=== PATIENT | male | born 1980 | race Hispanic/Latino ===

== ENCOUNTER 2017-04-27 05:35 | Emergency (ER) | payer SELFPAY ==
[2017-04-27] MEDS ORDERED: Nitroglycerin 0.4 MG TAB (25 Tab Bottle) ONE (06:21)
[2017-04-27 06:24] LABS: #Basophils 0.1 thou/uL (0.0-0.2); #Eosinphils 0.1 thou/uL (0.0-0.7); #Lymphocytes 1.8 thou/uL (1.20-3.40); #Monocytes 0.5 thou/uL (0.11-0.59); #Neutrophils 5.8 thou/uL (1.40-6.50); %Basophils 0.9 % (0.0-1.0); %Eosinophils 1.7 % (0.0-10.0); %Lymphocytes 21.6 % (21.0-51.0); %Monocytes 5.9 % (0.0-10.0); Hematocrit 32.4 % (42.0-52.0); Mean Platelet Volume 6.6 fL (7.4-10.4); Red Blood Cell (RBC) Count 3.81 mill/uL (4.70-6.10); White Blood Cell (WBC) Count 8.3 thou/uL (4.8-10.8)
[2017-04-27 06:40] LABS: ALT (SGPT) 15 U/L (8-55); AST (SGOT) 17 U/L (5-34); Alkaline Phosphatase 95 U/L (40-150); Anion Gap 13 mmol/L (10-20); BUN (Urea Nitrogen) 32 mg/dL (8.9-20.6); Bilirubin, Total 0.3 mg/dL (0.2-1.2); CK (CPK) 121 U/L (30-200); Calc. Creatinine Clearance 0 mL/min (70-130); Calcium 8.6 mg/dL (7.8-10.44); Carbon Dioxide 19 mmol/L (22-29); Chloride 111 mmol/L (98-107); Estimated GFR-MDRD 31; Globulin 4.4 g/dL (2.4-3.5); Lipase 15 U/L (8-78); Protein, Total 7.4 g/dL (6.0-8.3)
[2017-04-27 06:41] LABS: Troponin I Less than 0.010 ng/mL (< 0.028)
--- NOTE | 2017-04-27 07:49 | RAD ---
CHEST 1 VIEW: HISTORY: Chest pain. COMPARISON: 03/09/15. FINDINGS: Cardiac silhouette is magnified by projection. Pulmonary vasculature is unremarkable. Mediastinum is midline. There is no confluent airspace consolidation or evidence of pneumothorax. IMPRESSION: No active cardiopulmonary abnormalities are demonstrated. POS: [facility]
== END 2017-04-27 06:53 | disposition home or self-care (01) ==
LOC: SCSER 05:35
DX: R07.89 Other chest pain (principal); I12.9 Hypertensive chronic kidney disease with stage 1 through stage 4 chronic kidney disease, or unspecified chronic kidney disease; N18.3 Chronic kidney disease, stage 3 (moderate); F17.210 Nicotine dependence, cigarettes, uncomplicated
CPT/HCPCS: 71010; 80053; 82550; 82553; 83690; 84484; 85025; 93005

== ENCOUNTER 2017-05-09 16:15 | Observation (INO) | payer SELFPAY ==
[2017-05-09] MEDS ORDERED: Ondansetron HCl/PF 4 MG/2 ML Vial ONE (16:52)
[2017-05-09] MEDS ORDERED: Morphine 2 MG/ML SYRINGE ONE (16:52)
[2017-05-09] MEDS ORDERED: Famotidine/PF 20 mg/2ml Vial ONE (16:52)
[2017-05-09 16:58] LABS: #Eosinphils 0.2 thou/uL (0.0-0.7); #Lymphocytes 1.9 thou/uL (1.20-3.40); #Monocytes 0.5 thou/uL (0.11-0.59); #Neutrophils 4.8 thou/uL (1.40-6.50); %Basophils 0.6 % (0.0-1.0); %Eosinophils 2.2 % (0.0-10.0); %Lymphocytes 25.9 % (21.0-51.0); %Monocytes 6.8 % (0.0-10.0); Hematocrit 31.9 % (42.0-52.0); Mean Platelet Volume 6.6 fL (7.4-10.4); Red Blood Cell (RBC) Count 3.59 mill/uL (4.70-6.10); White Blood Cell (WBC) Count 7.5 thou/uL (4.8-10.8)
[2017-05-09 17:22] LABS: ALT (SGPT) 9 U/L (8-55); AST (SGOT) 16 U/L (5-34); Alkaline Phosphatase 94 U/L (40-150); Anion Gap 11 mmol/L (10-20); BUN (Urea Nitrogen) 37 mg/dL (8.9-20.6); Bilirubin, Total 0.3 mg/dL (0.2-1.2); Calc. Creatinine Clearance 0 mL/min (70-130); Calcium 8.3 mg/dL (7.8-10.44); Carbon Dioxide 15 mmol/L (22-29); Chloride 115 mmol/L (98-107); Estimated GFR-MDRD 32; Globulin 4.8 g/dL (2.4-3.5); Lipase 13 U/L (8-78); Protein, Total 7.5 g/dL (6.0-8.3)
--- NOTE | 2017-05-09 17:44 | ULT ---
GALLBLADDER ULTRASOUND: Date: 05/09/17 CLINICAL HISTORY: Pain. FINDINGS: There is increased echogenicity of the hepatic parenchyma. Gallbladder wall is within normal limits. There is no evidence of pericholecystic edema. Common duct is normal in caliber measuring 5.0 mm in diameter. No ascites. Persistent shadowing from bowel content does limit the assessment. IMPRESSION: 1. No acute gallbladder pathology. 2. Heterogeneity of hepatic echotexture. This is limited by the degree of persistent bowel shadowin g, although component of underlying steatosis cannot be entirely excluded. POS: [facility]
[2017-05-09 18:18] LABS: Bilirubin Negative (Negative); Blood, Urine Moderate (Negative); Glucose, Urine (Dipstick) 250 mg/dL (Negative); Ketone, Urine Negative (Negative); Nitrite Negative (Negative); Protein, Urine (Dipstick) > or equal to 300 mg/dL (Neg-Trace); Urobilinogen 0.2 mg/dL (0.2-1.0)
[2017-05-09 18:20] LABS: Bacteria/HPF None Seen HPF (None Seen); Hyaline Casts/LPF 0-3 HYALINE CAST LPF (0-3 Hyaline); Squamous Epithelial 0-3 HPF (0-3); WBC/HPF 0-3 HPF (0-3)
[2017-05-09] MEDS ORDERED: Dextrose 50% Abboject 50 ML SYRINGE ONE (18:52)
[2017-05-09] MEDS ORDERED: Insulin Regular 300 UNITS/3 ML VIAL ONE (18:52)
[2017-05-09] MEDS ORDERED: Albuterol Sulfate 2.5 mg/3 ml Neb ONE (18:57)
[2017-05-09] MEDS ORDERED: Ondansetron HCl/PF 4 MG/2 ML Vial IVP PRN (20:18)
[2017-05-09] MEDS ORDERED: Dextrose 5% in Water 1,000 ML IV PRN (20:20)
[2017-05-09] MEDS ORDERED: HumaLOG 300 UNITS/3 ML VIAL SC PRN ×2 (20:20)
[2017-05-09] MEDS ORDERED: Dextrose 50% Abboject 50 ML SYRINGE SLOW IVP PRN (20:20)
[2017-05-09] MEDS ORDERED: Sodium Bicarbonate 75 MEQ in Sodium Chloride 0.45% 1,000 ML IV SCH (20:45)
[2017-05-09] MEDS ORDERED: traMADol HCl 50 MG TAB PO PRN (23:01)
[2017-05-09] MEDS ORDERED: Morphine 2 MG/ML SYRINGE SLOW IVP PRN (23:01)
[2017-05-09] MEDS: Heparin 5,000 UNITS/ML VIAL SC SCH (23:04)
--- NOTE | 2017-05-10 01:36 | HP ---
DATE OF ADMISSION: 05/09/2017 CHIEF COMPLAINT: Right upper quadrant pain. HISTORY OF PRESENT ILLNESS: Patient is a 36-year-old male with the past medical history of diabetes mellitus type 2, peripheral vascular disease, hypertension, who came to the ER because of the abdom inal pain. He started having abdominal pain a few days back, pain is in the right upper quadrant, c onstant pain associated with nausea and vomiting. Denies any melena, denies any black stool. Denie s any chest pain, denies any trouble breathing, denies any palpation. Pain is cramping like of pain , improves with pain medication and relates with rest, denies any fever, denies any chills, denies d izziness. PAST MEDICAL HISTORY: As per HPI. PAST SURGICAL HISTORY: BKA. SOCIAL HISTORY: Denies smoking, denies alcohol, denies any drugs. MEDICATIONS: Reviewed. FAMILY HISTORY: Denies any heart problems. REVIEW OF SYSTEMS: Constitutional: Denies any fever, denies any chills. Eyes: Denies any vision problems. Ears: Denies any hearing loss. Neck: Denies any neck pain. Cardiovascular system: Tae es any chest pain, palpitation. Respiratory system: Denies any cough, denies any sputum production . Gastrointestinal: Positive for abdominal pain. Positive for nausea, vomiting. Musculoskeletal: Denies any joint deformities. Integumentary: Denies any rash. Psychiatric: Denies depression, anxiety. All other review of systems are reviewed and are negative. PHYSICAL EXAMINATION: CONSTITUTIONAL/VITAL SIGNS: At the time of H and P performed, blood pressure is 136/75, pulse ox 99 %, heart rate of 114. GENERAL: The patient appears comfortable. HEENT: Pupils equal, round, and reactive. Anterior naris patent. Nose normal. Teeth intact. Ton rochelle is moist. NECK: Supple, no JVD. CARDIOVASCULAR SYSTEM: S1, S2 present. Regular rate and rhythm. No murmurs, no rubs, no gallops. RESPIRATORY SYSTEM: No wheezing, no rhonchi. INTEGUMENTARY: No rashes seen. PSYCHIATRIC: Mood appropriate at this time. MUSCULOSKELETAL: No edema. LABORATORY DATA: At the time of H and P performed, sodium of 135, potassium 5.7, chloride of 115, C O2 15, BUN 37, creatinine 2.36. White count is 7.5, hemoglobin 10.9, platelet count is 308. UA spe cific greater than 300 protein, moderate blood, 7-10 rbc's. ASSESSMENT AND PLAN: The patient is a 36-year-old male: 1. Abdominal pain, right upper quadrant need to rule out any gallbladder dysfunction. We will go a head and check HIDA scan to rule out any gallbladder etiology. We will check ejection fraction also , and we will consult GI to evaluate the patient. 2. Non-anion gap metabolic acidosis plus chronic kidney disease stage 3 to 4. Creatinine appears c lose to baseline and metabolic acidosis might be secondary to underlying kidney disease itself. We will go ahead and check lactic acid and ketones also. We will start patient half NS with 75 mEq bic arbonate, and we will monitor bicarbonate closely. No need for hemodialysis at this time. 3. History of hypertension. Continue home blood pressure meds. 4. Diabetes type 2. Monitor blood sugars. We will do insulin sliding scale. 5. Proteinuria plus hematuria might be secondary to diabetic nephropathy and hypertension, need out patient workup. The case was discussed in detail with the patient. Patient is FULL CODE.
[2017-05-10 04:52] VITALS: BMI 38.2
[2017-05-10 05:25] LABS: #Eosinphils 0.1 thou/uL (0.0-0.7); #Lymphocytes 2.2 thou/uL (1.20-3.40); #Monocytes 0.6 thou/uL (0.11-0.59); #Neutrophils 4.9 thou/uL (1.40-6.50); %Basophils 0.2 % (0.0-1.0); %Eosinophils 1.3 % (0.0-10.0); %Lymphocytes 28.2 % (21.0-51.0); Mean Platelet Volume 6.4 fL (7.4-10.4); Red Blood Cell (RBC) Count 3.13 mill/uL (4.70-6.10); White Blood Cell (WBC) Count 7.8 thou/uL (4.8-10.8)
[2017-05-10 05:43] LABS: ALT (SGPT) 8 U/L (8-55); AST (SGOT) 11 U/L (5-34); Alkaline Phosphatase 78 U/L (40-150); Anion Gap 7 mmol/L (10-20); BUN (Urea Nitrogen) 35 mg/dL (8.9-20.6); Bilirubin, Total 0.2 mg/dL (0.2-1.2); Calc. Creatinine Clearance 92 mL/min (70-130); Calcium 7.7 mg/dL (7.8-10.44); Carbon Dioxide 15 mmol/L (22-29); Chloride 121 mmol/L (98-107); Estimated GFR-MDRD 34; Globulin 3.6 g/dL (2.4-3.5); Protein, Total 5.9 g/dL (6.0-8.3)
[2017-05-10] MEDS ORDERED: Ferrous Sulfate 325 MG TAB PO SCH (08:00)
[2017-05-10] MEDS ORDERED: Cholestyramine/Aspartame 4 gm Packet PO SCH (08:00)
[2017-05-10] MEDS ORDERED: Famotidine 20 MG TAB PO SCH (09:00)
[2017-05-10] MEDS: Amlodipine 5 MG TAB PO SCH ×2 (09:06→14:15)
[2017-05-10 14:18] VITALS: BP 160/96
[2017-05-10] MEDS: Heparin 5,000 UNITS/ML VIAL SC SCH (14:20)
--- NOTE | 2017-05-10 16:59 | NM ---
HIDA SCAN 05/10/17 RADIOPHARMACEUTICAL: 4.0 millicuries technetium 99m Mebrofenin IV. FINDINGS: Gallbladder is visualized just prior to 20 minutes of imaging with gradual increased radiotracer act ivity. Subsequent to protein supplementation, gallbladder ejection fracture was evaluated and there is no s ignificant contraction of the gallbladder. The calculated gallbladder ejection fraction is less than 20%. IMPRESSION: 1. Visualization of the gallbladder excludes cystic duct obstruction. 2. Nonvisualization of bowel during the exam and absence of appropriate gallbladder contraction . This raises suspicion for the possibility of a common duct obstruction. Recommend ERCP for further evaluation. POS: [facility]
[2017-05-10 20:14] VITALS: TEMP 97.9
--- NOTE | 2017-05-11 00:31 | DIS ---
DATE OF ADMISSION: 05/09/2017 DATE OF DISCHARGE: 05/10/2017 DISCHARGE DIAGNOSES: 1. Right upper quadrant abdominal pain. 2. Chronic kidney disease, stage 3. 3. Hyperkalemia, mild. 4. Metabolic acidosis. 5. Diabetes mellitus, type 2. 6. Chronic normocytic anemia. 7. Hypertension. CONSULTATIONS: None. PERTINENT LABORATORY DATA AND X-RAY FINDINGS: Potassium ranged between 5.4 and 5.7, CO2 of 15, crea tinine ranged between 2.19 and 2.36 with estimated GFR ranging between 32 and 34. Lipase 13. CBC s howed a hemoglobin ranging between 8.8 and 10.5. Abdominal ultrasound dated on 05/09/2017, showed n o acute gallbladder pathology. Common bile duct is 5 mm. Hepatic biliary scan dated on 05/10/2017, showed absence of appropriate gallbladder contraction. Gallbladder ejection fraction calculated at 20%. HOSPITAL COURSE: Patient was initially admitted to the medical floor after presenting with right up per quadrant abdominal pain, undergoing right upper quadrant abdominal ultrasound showing no evidenc e of acute pathology. Patient was placed on IV fluids and given general pain medication. The patie nt was also noted with concomitant stage 3 chronic kidney disease, treated with normal saline with s odium bicarbonate, due to mild metabolic acidosis. The patient apparently underwent HIDA scan, asse ssing gallbladder ejection fraction, showing a diminished value with inconclusive study. Patient ap parently stated he was not able to remain as an inpatient and needed to leave the hospital to attend an appointment previously scheduled. Patient decided to leave against medical advice on 05/10/2017 .
[2017-05-11] MEDS ORDERED: FLU VACC QS2017-18 36 mo. & older 0.5 ML SYRINGE IM ONE (09:00)
== END 2017-05-10 14:25 | disposition left against medical advice (07) ==
LOC: ERS 16:15 → SURG A 20:41
PROVIDERS: ADMIT Internal Medicine; ATTEND Internal Medicine
DX: R10.11 Right upper quadrant pain (principal); E11.22 Type 2 diabetes mellitus with diabetic chronic kidney disease; I12.9 Hypertensive chronic kidney disease with stage 1 through stage 4 chronic kidney disease, or unspecified chronic kidney disease; N18.3 Chronic kidney disease, stage 3 (moderate); E11.51 Type 2 diabetes mellitus with diabetic peripheral angiopathy without gangrene; E87.5 Hyperkalemia; E87.2 Acidosis; D64.9 Anemia, unspecified; Z79.899 Other long term (current) drug therapy; Z89.519 Acquired absence of unspecified leg below knee; Z87.891 Personal history of nicotine dependence
CPT/HCPCS: 36415; 36416; 76705; 78227; 80053; 81003; 81015; 83690; 85025; 96361; 96365; 96366; 96374; 96375; 96376; A9537; G0378; J1644; J1815; J2270; J2405; J7611; S0028

== ENCOUNTER 2017-05-21 02:18 | Inpatient (IN) | payer SELFPAY ==
[2017-05-21 02:51] LABS: #Basophils 0.1 thou/uL (0.0-0.2); #Eosinphils 0.1 thou/uL (0.0-0.7); #Lymphocytes 1.9 thou/uL (1.20-3.40); #Monocytes 0.6 thou/uL (0.11-0.59); #Neutrophils 8.2 thou/uL (1.40-6.50); %Basophils 0.6 % (0.0-1.0); %Lymphocytes 17.3 % (21.0-51.0); %Monocytes 5.9 % (0.0-10.0); Mean Platelet Volume 5.8 fL (7.4-10.4); Red Blood Cell (RBC) Count 3.44 mill/uL (4.70-6.10); White Blood Cell (WBC) Count 10.9 thou/uL (4.8-10.8)
[2017-05-21 03:12] LABS: ALT (SGPT) 12 U/L (8-55); AST (SGOT) 12 U/L (5-34); Alkaline Phosphatase 85 U/L (40-150); Anion Gap 13 mmol/L (10-20); BUN (Urea Nitrogen) 44 mg/dL (8.9-20.6); Bilirubin, Total 0.2 mg/dL (0.2-1.2); Calc. Creatinine Clearance 0 mL/min (70-130); Calcium 7.7 mg/dL (7.8-10.44); Carbon Dioxide 15 mmol/L (22-29); Chloride 116 mmol/L (98-107); Estimated GFR-MDRD 28; Globulin 3.7 g/dL (2.4-3.5); Lipase 25 U/L (8-78); Protein, Total 6.4 g/dL (6.0-8.3)
[2017-05-21] MEDS ORDERED: Bacitracin Zinc Ointment 30 gm TUBE ONE (03:23)
[2017-05-21] MEDS ORDERED: Famotidine/PF 20 mg/2ml Vial ONE (03:26)
[2017-05-21] MEDS ORDERED: Ondansetron HCl/PF 4 MG/2 ML Vial ONE (03:26)
[2017-05-21 03:50] LABS: Lactic Acid - Sepsis 1.2 mmol/L (0.5-2.2)
[2017-05-21 04:02] LABS: Troponin I Less than 0.010 ng/mL (< 0.028)
[2017-05-21] MEDS ORDERED: Ondansetron ODT 4 MG TAB SL PRN ×2 (05:31→07:24)
[2017-05-21] MEDS ORDERED: Ondansetron HCl/PF 4 MG/2 ML Vial IVP PRN (05:31)
[2017-05-21 05:41] VITALS: BMI 38.2
[2017-05-21] MEDS ORDERED: Dextrose 5 %-0.45 % NaCl 1,000 ML IV SCH (05:45)
[2017-05-21] MEDS ORDERED: Morphine 10 MG/ML VIAL SLOW IVP SCH (06:15)
[2017-05-21] MEDS ORDERED: Dextrose 50% Abboject 50 ML SYRINGE SLOW IVP PRN (07:24)
[2017-05-21] MEDS ORDERED: hydrALAZINE 20 MG/ML VIAL SLOW IVP PRN (07:24)
[2017-05-21] MEDS ORDERED: Acetaminophen 650 MG Suppository PR PRN (07:24)
[2017-05-21] MEDS ORDERED: HumaLOG 300 UNITS/3 ML VIAL SC PRN (07:24)
[2017-05-21] MEDS ORDERED: Dextrose 5% in Water 1,000 ML IV PRN (07:24)
[2017-05-21] MEDS: Dextrose 5 % And 0.9 % NaCl 1,000 ML IV SCH ×2 (07:48→20:00)
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
[2017-05-21] MEDS: Heparin 5,000 UNITS/ML VIAL SC SCH ×2 (08:57→20:00)
[2017-05-21] MEDS: Famotidine/PF 20 mg/2ml Vial SLOW IVP SCH ×2 (08:57→20:00)
[2017-05-21] MEDS ORDERED: FLU VACC QS2017-18 36 mo. & older 0.5 ML SYRINGE IM ONE (09:00)
[2017-05-21] MEDS: Silver Sulfadiazine 1% Cream 50 GM TUBE TP SCH ×2 (10:01→20:11)
[2017-05-21] MEDS: Ondansetron HCl/PF 4 MG/2 ML Vial IVP PRN (10:29)
[2017-05-21] MEDS: HYDROcodone/Acetaminophen 5/325 mg Tablet PO PRN (19:59)
[2017-05-21 23:19] LABS: Iron 18 ug/dL (65-175)
--- NOTE | 2017-05-22 00:02 | CON ---
DATE OF CONSULTATION: 05/21/2017 CHIEF COMPLAINT: Right upper quadrant abdominal pain. HISTORY OF PRESENT ILLNESS: Mr. Beltrán is a 36-year-old man who reports right upper quadrant aching to sharp pain which has been constant for the last 3-4 weeks. He went to the emergency room to [facility] e this evaluated and ultrasound was performed on 05/09/2017. The ultrasound showed evidence of fatt y liver, but was otherwise unremarkable. The gallbladder appeared normal and the bile duct measured 5 mm. He subsequently underwent a HIDA scan which showed the gallbladder to have filled excluding cystic duct obstruction. The calculated gallbladder ejection fraction was 20% after a protein suppl ement. The radiotracer was not confirmed to have been seen in the bowel. The pain radiates around to the right back. He has had nausea with vomiting about daily for the last week. His pain gets wo rse when he is full after eating. He does have chronic diarrhea and has about 3 liquidy stools per day with urgency immediately after meals. PAST MEDICAL HISTORY: Diabetes mellitus since age 24. Hemoglobin A1c last in 2015 was 5.8 see more recent hemoglobin A1c. He has chronic renal insufficiency. He has chronic anemia. Iron studies i n the past were more consistent with anemia of chronic disease with low iron and low TIBC. His iron studies have not been checked recently. Hypertension and peripheral vascular disease. PAST SURGICAL HISTORY: [id number] amputation. He had colonoscopy by Dr. Beck in 2013 after the preparation quality was suboptimal, this was for evaluation of chronic diarrhea which has been pret ty stable since then. FAMILY HISTORY: Negative for GI malignancies. SOCIAL HISTORY: No alcohol, tobacco or drugs. ALLERGIES: No known drug allergies. MEDICATIONS AT HOME: Famotidine, heparin, Silvadene cream, insulin. At home, he has been on lisino pril and hydralazine. REVIEW OF SYSTEMS: Negative x10 systems reviewed except as stated in the history of present illness . PHYSICAL EXAMINATION: VITAL SIGNS: Temperature 98.0, pulse 89, blood pressure 155/99. Weight is 305 pounds. GENERAL: He is in no acute distress, alert and oriented x3. He is obese. HEENT: Eyes have no scleral icterus. Oropharynx is clear, without lesions. NECK: There is no cervical or supraclavicular lymphadenopathy. LUNGS: Clear to auscultation bilaterally. HEART: Regular rate and rhythm. ABDOMEN: Soft, nondistended. Bowel sounds are present. He is tender to palpation in the right upp er quadrant. EXTREMITIES: No lower extremity edema. LABORATORY DATA: White blood cell count 10.9, hemoglobin 9.3, platelets 283, bilirubin 0.2, AST 12, ALT 12, alkaline phosphatase 85, albumin 2.7, creatinine 2.62. IMPRESSION: 1. Right upper quadrant constant pain which worsens after meals when he is feeling full. Ultrasoun d was normal other than fatty liver. HIDA scan did show a mildly decreased ejection fraction. He i s tender to palpation in the right upper quadrant. First step will be to rule out peptic ulcer dise ase or gastritis as a source. If that is negative, then gastroparesis needs to be considered and a gastric emptying scan can be performed. This likely should be done as an outpatient when he is clos er to his baseline. If the endoscopy and gastric emptying scan are normal and the patient continues to have the pain and tenderness in the right upper quadrant, then cholecystectomy can be considered . 2. Chronic normocytic anemia. This is likely due to anemia of chronic disease; however, we will re check iron studies. PLAN: 1. EGD tomorrow. 2. If the EGD is negative, then start a low residue diet with small more frequent meals and follow up as an outpatient to consider gastric emptying study. 3. Check hemoglobin A1c and iron and TIBC.
[2017-05-22 05:20] LABS: #Eosinphils 0.1 thou/uL (0.0-0.7); #Monocytes 0.6 thou/uL (0.11-0.59); %Basophils 0.2 % (0.0-1.0); %Eosinophils 1.6 % (0.0-10.0); %Lymphocytes 26.1 % (21.0-51.0); %Monocytes 7.4 % (0.0-10.0); Hematocrit 26.5 % (42.0-52.0); Mean Platelet Volume 6.7 fL (7.4-10.4); Red Blood Cell (RBC) Count 2.94 mill/uL (4.70-6.10); White Blood Cell (WBC) Count 7.7 thou/uL (4.8-10.8)
[2017-05-22 05:41] LABS: Anion Gap 9 mmol/L (10-20); BUN (Urea Nitrogen) 34 mg/dL (8.9-20.6); Calc. Creatinine Clearance 93 mL/min (70-130); Calcium 7.7 mg/dL (7.8-10.44); Carbon Dioxide 15 mmol/L (22-29); Chloride 116 mmol/L (98-107); Estimated GFR-MDRD 35
[2017-05-22] MEDS: Famotidine/PF 20 mg/2ml Vial SLOW IVP SCH (07:41)
[2017-05-22] MEDS: Ondansetron HCl/PF 4 MG/2 ML Vial IVP PRN (08:51)
[2017-05-22] MEDS: HYDROcodone/Acetaminophen 5/325 mg Tablet PO PRN (09:07)
[2017-05-22] MEDS: Silver Sulfadiazine 1% Cream 50 GM TUBE TP SCH ×2 (09:09→20:56)
[2017-05-22] MEDS: Heparin 5,000 UNITS/ML VIAL SC SCH ×2 (09:21→20:56)
[2017-05-22] MEDS: Dextrose 5 % And 0.9 % NaCl 1,000 ML IV SCH (11:20)
--- NOTE | 2017-05-22 13:25 | PDOC.PN ---
- Subjective Encounter Start Date: 05/22/17 Encounter Start Time: 10:50 Patient seen and examined. No new complaints. No overnight events - Objective Resuscitation Status: Resuscitation Status FULL:Full Resuscitation MAR Reviewed: Yes Vital Signs & Weight: Vital Signs (12 hours) Temp Pulse Resp BP BP Pulse Ox 05/22/17 12:26 98.2 F 82 16 129/84 98 05/22/17 11:28 98.2 F 82 16 129/84 98 05/22/17 08:00 98.1 F 85 18 05/22/17 07:32 98.1 F 85 18 128/85 98 05/22/17 04:00 98.4 F 81 18 144/87 H 99 Weight Admit Weight 305 lb 7 oz Weight 307 lb 1 oz I&O: 05/21/17 05/22/17 05/23/17 06:59 06:59 06:59 Intake Total 132 2150.5 1004 Output Total 350 1000 Balance -218 1150.5 1004 Result Diagrams: 05/22/17 05:08 05/22/17 05:08 Additional Labs: Accuchecks 05/22/17 05/22/17 05/21/17 11:10 03:35 20:08 POC Glucose 99 126 H 137 H 05/21/17 15:53 POC Glucose 95 Phys Exam - Physical Examination Constitutional: NAD HEENT: moist MMs, sclera anicteric Neck: no JVD, supple Respiratory: no wheezing, no rales, no rhonchi Cardiovascular: RRR, no significant murmur, no rub Gastrointestinal: soft, no distention, positive bowel sounds Musculoskeletal: no edema, pulses present right BKA Neurological: non-focal, normal sensation Psychiatric: normal affect, A&O x 3 Skin: no rash, normal turgor Dx/Plan (1) RUQ abdominal pain Code(s): R10.11 - RIGHT UPPER QUADRANT PAIN Status: Acute (2) Hypertension Code(s): I10 - ESSENTIAL (PRIMARY) HYPERTENSION Status: Chronic (3) Normocytic anemia Code(s): D64.9 - ANEMIA, UNSPECIFIED Status: Chronic (4) Obesity (BMI 30-39.9) Code(s): E66.9 - OBESITY, UNSPECIFIED Status: Chronic - Plan cont current plan of care * EGD today * after procedure will discharge * medication reviewed as below * symptomatic treatment. Review of Systems - Review of Systems ENT: negative: Ear Pain, Ear Discharge, Nose Pain, Nose Discharge, Nose Congestion, Mouth Pain, Mouth Swelling, Throat Pain, Throat Swelling, Other Respiratory: negative: Cough, Dry, Shortness of Breath, Hemoptysis, SOB with Excertion, Pleuritic Pain, Sputum, Wheezing Cardiovascular: negative: Chest Pain, Palpitations, Orthopnea, Paroxysmal Noc. Dyspnea, Edema, Light Headedness, Other Gastrointestinal: Abdominal Pain. negative: Nausea, Vomiting, Diarrhea, Constipation, Melena, Hematochezia, Other Genitourinary: negative: Dysuria, Frequency, Incontinence, Hematuria, Retention , Other Musculoskeletal: negative: Neck Pain, Shoulder Pain, Arm Pain, Back Pain, Hand Pain, Leg Pain, Foot Pain, Other Skin: negative: Rash, Lesions, Ranjit, Bruising, Other - Medications/Allergies Allergies/Adverse Reactions: Allergies Allergy/AdvReac Type Severity Reaction Status Date / Time No Known Drug Allergies Allergy Verified 05/21/17 05:40 Medications: Current Medications Acetaminophen (Tylenol) 650 mg [place] Q4H PRN PRN Reason: Headache/Fever or Pain Hydrocodone Bitart/Acetaminophen ([place] 5/325) 1 tab PO Q4H PRN PRN Reason: Moderate Pain (4-6) Last Admin: 05/22/17 09:07 Dose: 1 tab Dextrose/Water (Dextrose 50%) 25 gm SLOW IVP PRN PRN PRN Reason: Hypoglycemia Famotidine (Pepcid) 20 mg SLOW IVP Q12HR [facility] Last Admin: 05/22/17 07:41 Dose: 20 mg Glucagon (Glucagon) 1 mg IM PRN PRN PRN Reason: Hypoglycemia Heparin Sodium (Porcine) (Heparin) 5,000 units SC BID [facility] Last Admin: 05/22/17 09:21 Dose: Not Given Hydralazine HCl (Apresoline) 10 mg SLOW IVP Q4H PRN PRN Reason: Systolic BP > 180 Dextrose/Sodium Chloride (D5 0.9% Ns) 1,000 mls @ 75 mls/hr IV .[id number] [facility] Last Admin: 05/22/17 11:20 Dose: 1,000 mls Dextrose/Water (D5w) 1,000 mls @ 0 mls/hr IV .Q0M PRN; As Directed PRN Reason: Hypoglycemia Insulin Human Lispro (Humalog) 0 units SC .MILD SLIDING SCALE PRN PRN Reason: Mild Correctional Scale Ondansetron HCl (Zofran Odt) 4 mg SL Q6H PRN PRN Reason: Nausea/Vomiting Ondansetron HCl (Zofran) 4 mg IVP Q6H PRN PRN Reason: Nausea/Vomiting Last Admin: 05/22/17 08:51 Dose: 4 mg Silver Sulfadiazine (Silvadene Cream) 1 gm TP BID [facility] Last Admin: 05/22/17 09:09 Dose: 1 applic
--- NOTE | 2017-05-22 13:29 | DIS ---
DATE OF ADMISSION: 05/21/2017 DATE OF DISCHARGE: 05/22/2017 PRIMARY CARE PHYSICIAN: [facility]. DISCHARGE DISPOSITION: Home. PRIMARY DISCHARGE DIAGNOSIS: Right upper quadrant abdominal pain. SECONDARY DISCHARGE DIAGNOSES: Hypertension, normocytic anemia, right below knee amputation status, obesity with body mass index 38, and chronic kidney disease stage 3. PRIMARY PROCEDURE/OPERATION: Upper endoscopy. RADIOLOGICAL INVESTIGATION: None during this admission. SIGNIFICANT LABORATORY DATA: Hemoglobin 8.6, sodium 135, creatinine 2.17, iron 18, ferritin 65. DISCHARGE MEDICATIONS: Lisinopril 10 mg p.o. daily, Protonix 40 mg p.o. daily, hydralazine 10 mg p. o. daily, and Tylenol 500 mg q.4 hourly p.r.n. CONTRAINDICATIONS: None. CODE STATUS: FULL CODE. INPATIENT DRAPERY AND UPHOLSTERY MEASURER: Dr. Luciano Sol was consulted while in hospital. TEST RESULTS PENDING ON DISCHARGE: Upper endoscopy. DISCHARGE PLAN: [facility] hospital[facility] The patie nt is also advised to follow with Dr. Wolf. HOSPITAL COURSE: A 36-year-old male who was recently admitted in our hospital. At that time, he ca pr for right upper quadrant abdominal pain. During that admission, patient had abdominal ultrasound and HIDA scan that showed reduced gallbladder ejection fraction and ultrasound showed fatty liver. The patient left AMA during that admission and he came back again with similar right upper quadrant abdominal pain. During this admission, we are consulting Dr. Wolf and he is planning to do upper e ndoscopy today. After upper endoscopy done and based on that finding, we will consider that this patient may need a gastric emptying scan to rule out gastroparesis and if that is normal, then this patient may need fu rther treatment with a laparoscopic cholecystectomy. At this point, during this admission our goal is to do upper endoscopy only and after that we will p rescribe him Protonix therapy. He will continue all his previous medication. Patient will follow u p with Dr. Wolf for gastric emptying scan and if that is normal, then he will need a [facility] cholecyst[facility]. The patient is seen and examined at bedside today. PHYSICAL EXAMINATION: VITAL SIGNS: Currently, temperature 98.2, pulse 82, respiratory rate 16, blood pressure 129/84, and weight 307 pounds. GENERAL: The patient is currently alert, awake, no acute distress. HEAD: Normocephalic, atraumatic. LUNGS: Clear. CARDIAC: S1, S2 regular without any murmur. ABDOMEN: Soft and benign, obesity present. Right upper quadrant tenderness noted. No Miranda sign. EXTREMITIES: Right below knee amputation status. NEUROLOGIC: Nonfocal examination. Review of systems is negative with patient. The patient will be discharged later on today after upp er endoscopy done.
[2017-05-22] MEDS ORDERED: Propofol 200 MG/20 ML VIAL ONE (14:28)
--- NOTE | 2017-05-22 20:12 | OP ---
PREPROCEDURE DIAGNOSES: 1. Epigastric pain, right upper quadrant pain after meals, HIDA scan with decreased ejection fracti on. 2. Normocytic normochromic anemic with anemia of chronic disease. 3. Normal colonoscopy, 06/2014 for diarrhea. POSTPORCEDURE DIAGNOSES: 1. Fine nodular gastritis consistent with Heliobacter pylori gastritis. If patient can be discharg ed today, I will treat him with antibiotics on discharge, now I will wait for the biopsies. 2. No cause of abdominal pain identified. It is not likely related to Helicobacter pylori. 3. Clear bile noted coming from the ampulla. 4. Reflux esophagitis, mild LA grade A. RECOMMENDATIONS: 1. PPI. 2. Treat H. pylori based on biopsy results. 3. Gastric emptying scan. 4. Check hemoglobin A1c.
[2017-05-23] MEDS ORDERED: diphenhydrAMINE 50 MG/ML VIAL IVP SCH (01:00)
[2017-05-23] MEDS ORDERED: diphenhydrAMINE 50 MG/ML VIAL IVP PRN (01:09)
[2017-05-23] MEDS: Dextrose 5 % And 0.9 % NaCl 1,000 ML IV SCH (01:28)
[2017-05-23] MEDS: Heparin 5,000 UNITS/ML VIAL SC SCH ×2 (12:31→22:06)
[2017-05-23] MEDS: Silver Sulfadiazine 1% Cream 50 GM TUBE TP SCH ×2 (13:03→22:06)
--- NOTE | 2017-05-23 13:06 | PDOC.PN ---
- Subjective Encounter Start Date: 05/23/17 Encounter Start Time: 10:50 Patient seen and examined. No new complaints. No overnight events - Objective Resuscitation Status: Resuscitation Status FULL:Full Resuscitation MAR Reviewed: Yes Vital Signs & Weight: Vital Signs (12 hours) Temp Pulse Resp BP Pulse Ox 05/23/17 08:10 98.3 F 88 20 98 05/23/17 08:00 98.3 F 88 20 168/97 H 99 05/23/17 06:00 98.3 F 87 18 109/64 Weight Admit Weight 305 lb 7 oz Weight 312 lb I&O: 05/22/17 05/23/17 05/24/17 06:59 06:59 06:59 Intake Total 2150.5 3996.5 360 Output Total 1000 1100 Balance 1150.5 2896.5 360 Result Diagrams: 05/22/17 05:08 05/22/17 05:08 Additional Labs: Accuchecks 05/23/17 05/23/17 05/22/17 04:54 01:30 20:11 POC Glucose 116 H 117 H 144 H 05/22/17 05/22/17 16:35 15:39 POC Glucose 132 H 89 Radiology Reviewed by me: Yes Phys Exam - Physical Examination Constitutional: NAD HEENT: PERRLA, moist MMs, sclera anicteric Neck: no JVD, supple Respiratory: no wheezing, no rales, no rhonchi Cardiovascular: RRR, no significant murmur, no rub Gastrointestinal: soft, non-tender, no distention, positive bowel sounds Musculoskeletal: no edema, pulses present right BKA Neurological: non-focal, normal sensation Psychiatric: normal affect, A&O x 3 Skin: no rash, normal turgor Dx/Plan (1) RUQ abdominal pain Code(s): R10.11 - RIGHT UPPER QUADRANT PAIN Status: Acute (2) Hypertension Code(s): I10 - ESSENTIAL (PRIMARY) HYPERTENSION Status: Chronic (3) Normocytic anemia Code(s): D64.9 - ANEMIA, UNSPECIFIED Status: Chronic (4) Obesity (BMI 30-39.9) Code(s): E66.9 - OBESITY, UNSPECIFIED Status: Chronic - Plan cont current plan of care * EGD negative * today gastric emptying scan * if normal, will consult surgeon for lap antonette evaluation * medication reviewed as below * symptomatic treatment * change to inpt status. Review of Systems - Review of Systems ENT: negative: Ear Pain, Ear Discharge, Nose Pain, Nose Discharge, Nose Congestion, Mouth Pain, Mouth Swelling, Throat Pain, Throat Swelling, Other Respiratory: negative: Cough, Dry, Shortness of Breath, Hemoptysis, SOB with Excertion, Pleuritic Pain, Sputum, Wheezing Cardiovascular: negative: Chest Pain, Palpitations, Orthopnea, Paroxysmal Noc. Dyspnea, Edema, Light Headedness, Other Gastrointestinal: Abdominal Pain. negative: Nausea, Vomiting, Diarrhea, Constipation, Melena, Hematochezia, Other Genitourinary: negative: Dysuria, Frequency, Incontinence, Hematuria, Retention , Other Musculoskeletal: negative: Neck Pain, Shoulder Pain, Arm Pain, Back Pain, Hand Pain, Leg Pain, Foot Pain, Other - Medications/Allergies Allergies/Adverse Reactions: Allergies Allergy/AdvReac Type Severity Reaction Status Date / Time No Known Drug Allergies Allergy Verified 05/21/17 05:40 Medications: Current Medications Acetaminophen (Tylenol) 650 mg PA Q4H PRN PRN Reason: Headache/Fever or Pain Hydrocodone Bitart/Acetaminophen (Paola 5/325) 1 tab PO Q4H PRN PRN Reason: Moderate Pain (4-6) Last Admin: 05/22/17 09:07 Dose: 1 tab Dextrose/Water (Dextrose 50%) 25 gm SLOW IVP PRN PRN PRN Reason: Hypoglycemia Diphenhydramine HCl (Benadryl) 25 mg IVP Q6H PRN PRN Reason: Itching & Insomnia Glucagon (Glucagon) 1 mg IM PRN PRN PRN Reason: Hypoglycemia Heparin Sodium (Porcine) (Heparin) 5,000 units SC BID CARLOS EDUARDO Last Admin: 05/23/17 12:31 Dose: Not Given Hydralazine HCl (Apresoline) 10 mg SLOW IVP Q4H PRN PRN Reason: Systolic BP > 180 Dextrose/Water (D5w) 1,000 mls @ 0 mls/hr IV .Q0M PRN; As Directed PRN Reason: Hypoglycemia Insulin Human Lispro (Humalog) 0 units SC .MILD SLIDING SCALE PRN PRN Reason: Mild Correctional Scale Ondansetron HCl (Zofran Odt) 4 mg SL Q6H PRN PRN Reason: Nausea/Vomiting Ondansetron HCl (Zofran) 4 mg IVP Q6H PRN PRN Reason: Nausea/Vomiting Last Admin: 05/22/17 08:51 Dose: 4 mg Pantoprazole Sodium (Protonix) 40 mg PO DAILY [facility] Last Admin: 05/23/17 12:31 Dose: Not Given Silver Sulfadiazine (Silvadene Cream) 1 gm TP BID [facility] Last Admin: 05/23/17 13:03 Dose: 1 applic Sodium Chloride (Flush - Normal Saline) 10 ml IVF PRN PRN PRN Reason: Saline Flush
[2017-05-23] MEDS: HYDROcodone/Acetaminophen 5/325 mg Tablet PO PRN (14:30)
--- NOTE | 2017-05-23 15:47 | NM ---
GASTRIC EMPTYING EXAM: 05/23/17 CLINICAL HISTORY: Epigastric pain, nausea and vomiting. RADIOPHARMACEUTICAL: 2 millicuries technetium 99m sulfur colloid, oral. FINDINGS: Using geometric mean, the calculated total gastric emptying is 30% at greater than 230 minutes. IMPRESSION: Minimal gastric emptying over greater than 230 minutes. Correlate clinically for evidence of gastrop aresis. POS: [facility]
--- NOTE | 2017-05-23 17:35 | PRG ---
DATE OF SERVICE: 05/23/2017 SUBJECTIVE: Mr. Beltrán still has persistent right upper quadrant abdominal pain. OBJECTIVE: VITAL SIGNS: Temperature 98.3, pulse 88, blood pressure 168/97. GENERAL: He is in no acute distress. He is alert and oriented x3. LUNGS: Clear to auscultation bilaterally. HEART: Regular rate and rhythm. ABDOMEN: Soft, mild tenderness in the right upper side without guarding. Bowel sounds are present. EXTREMITIES: No lower extremity edema. LABORATORY DATA: White blood cell count 7.7, hemoglobin 8.6, platelets 235, ferritin 65, creatinine 2.17, iron 18, TIBC 206, and albumin 2.7. IMPRESSION: Diabetic gastroparesis. Gastric emptying scan today showed 30% emptying at 4 hours. E sophagogastroduodenoscopy was negative yesterday. He did have some nodular gastritis and mild reflu x esophagitis. Biopsies were negative for Helicobacter pylori. RECOMMENDATIONS: 1. Start gastroparesis diet with small more frequent meals and liquids and solid portion s of the meal. Low residue diet and low fat diet. I will consult the dietitian to assist with this . 2. We will give a trial of metoclopramide 5 mg prior to meals and at bedtime. If he tolerates this , then he could potentially increase the dose further in the future depending on response. 3. The patient is still concerned that he could have gallbladder source for his pain. If he fails to respond to treatment for the gastroparesis, then we can reassess the gallbladder. Please note that he will likely be ready to discharge home tomorrow.
[2017-05-23] MEDS ORDERED: hydrALAZINE 25 MG TAB PO SCH (23:00)
[2017-05-24] MEDS: HYDROcodone/Acetaminophen 5/325 mg Tablet PO PRN (00:18)
[2017-05-24] MEDS ORDERED: cloNIDine 0.1 MG TAB PO SCH (00:30)
[2017-05-24] MEDS ORDERED: cloNIDine 0.1 MG TAB PO PRN (00:41)
[2017-05-24] MEDS: Ondansetron HCl/PF 4 MG/2 ML Vial IVP PRN (04:41)
[2017-05-24 05:27] VITALS: TEMP 98.3
[2017-05-24] MEDS ORDERED: Dicyclomine 10 MG CAP PO PRN (06:21)
[2017-05-24 06:43] LABS: #Eosinphils 0.2 thou/uL (0.0-0.7); #Lymphocytes 1.7 thou/uL (1.20-3.40); #Monocytes 0.7 thou/uL (0.11-0.59); #Neutrophils 6.3 thou/uL (1.40-6.50); %Basophils 0.2 % (0.0-1.0); %Eosinophils 1.9 % (0.0-10.0); %Lymphocytes 18.9 % (21.0-51.0); %Monocytes 7.6 % (0.0-10.0); Hematocrit 29.2 % (42.0-52.0); Mean Platelet Volume 6.3 fL (7.4-10.4); Red Blood Cell (RBC) Count 3.28 mill/uL (4.70-6.10); White Blood Cell (WBC) Count 8.9 thou/uL (4.8-10.8)
[2017-05-24 06:54] LABS: Hemoglobin A1c 5.5 % (4.0-6.0)
[2017-05-24 07:08] LABS: Anion Gap 11 mmol/L (10-20); BUN (Urea Nitrogen) 31 mg/dL (8.9-20.6); Calc. Creatinine Clearance 97 mL/min (70-130); Calcium 8.2 mg/dL (7.8-10.44); Carbon Dioxide 16 mmol/L (22-29); Chloride 115 mmol/L (98-107); Estimated GFR-MDRD 36
[2017-05-24] MEDS: Silver Sulfadiazine 1% Cream 50 GM TUBE TP SCH (07:51)
[2017-05-24] MEDS: Heparin 5,000 UNITS/ML VIAL SC SCH (07:51)
[2017-05-24 07:55] VITALS: BP 158/95
[2017-05-24] MEDS ORDERED: hydrALAZINE 25 MG TAB PO SCH (09:00)
[2017-05-24] MEDS ORDERED: Metoprolol Tartrate 25 MG TAB PO SCH (09:00)
[2017-05-24] MEDS ORDERED: Amlodipine 5 MG TAB PO SCH (09:00)
--- NOTE | 2017-05-24 13:43 | PDOC.PN ---
- Subjective Encounter Start Date: 05/24/17 Encounter Start Time: 06:50 -: old records requested/rev Patient seen and examined. No new complaints. No overnight events - Objective Resuscitation Status: Resuscitation Status FULL:Full Resuscitation MAR Reviewed: Yes Vital Signs & Weight: Vital Signs (12 hours) Temp Pulse Resp BP BP Pulse Ox 05/24/17 08:00 98.3 F 87 16 97 05/24/17 07:53 98.3 F 87 16 158/95 H 99 05/24/17 07:50 88 05/24/17 04:00 98.3 F 88 18 152/88 H 99 05/24/17 02:00 97 127/80 Weight Admit Weight 305 lb 7 oz Weight 312 lb I&O: 05/23/17 05/24/17 05/25/17 06:59 06:59 06:59 Intake Total 3996.5 1520 Output Total 1100 2500 Balance 2896.5 -980 Result Diagrams: 05/24/17 06:34 05/24/17 06:34 Additional Labs: Accuchecks 05/24/17 05/24/17 05/24/17 11:02 04:34 00:20 POC Glucose 121 H 104 120 H 05/23/17 05/23/17 20:19 16:25 POC Glucose 93 97 Phys Exam - Physical Examination Constitutional: NAD HEENT: PERRLA, moist MMs, sclera anicteric Neck: no JVD, supple Respiratory: no wheezing, no rales, no rhonchi Cardiovascular: RRR, no significant murmur, no rub Gastrointestinal: soft, non-tender, no distention, positive bowel sounds Musculoskeletal: no edema, pulses present right BKA Neurological: non-focal, normal sensation, moves all 4 limbs Lymphatic: no nodes Psychiatric: normal affect, A&O x 3 Skin: no rash, normal turgor Dx/Plan (1) RUQ abdominal pain Code(s): R10.11 - RIGHT UPPER QUADRANT PAIN Status: Acute (2) Hypertension Code(s): I10 - ESSENTIAL (PRIMARY) HYPERTENSION Status: Chronic (3) Normocytic anemia Code(s): D64.9 - ANEMIA, UNSPECIFIED Status: Chronic (4) Obesity (BMI 30-39.9) Code(s): E66.9 - OBESITY, UNSPECIFIED Status: Chronic - Plan cont current plan of care * medication reviewed as below * symptomatic treatment * see discharge rosa from nove-1 and today. Review of Systems - Review of Systems ENT: negative: Ear Pain, Ear Discharge, Nose Pain, Nose Discharge, Nose Congestion, Mouth Pain, Mouth Swelling, Throat Pain, Throat Swelling, Other Respiratory: negative: Cough, Dry, Shortness of Breath, Hemoptysis, SOB with Excertion, Pleuritic Pain, Sputum, Wheezing Cardiovascular: negative: Chest Pain, Palpitations, Orthopnea, Paroxysmal Noc. Dyspnea, Edema, Light Headedness, Other Gastrointestinal: negative: Nausea, Vomiting, Abdominal Pain, Diarrhea, Constipation, Melena, Hematochezia, Other Genitourinary: negative: Dysuria, Frequency, Incontinence, Hematuria, Retention , Other Musculoskeletal: negative: Neck Pain, Shoulder Pain, Arm Pain, Back Pain, Hand Pain, Leg Pain, Foot Pain, Other - Medications/Allergies Allergies/Adverse Reactions: Allergies Allergy/AdvReac Type Severity Reaction Status Date / Time No Known Drug Allergies Allergy Verified 05/21/17 05:40
--- NOTE | 2017-05-24 14:05 | DIS ---
DATE OF ADMISSION: 05/21/2017 DATE OF DISCHARGE: 05/24/2017 PRIMARY CARE PHYSICIAN: [facility]. Please see my discharge summary dictated on 05/22/2017. This patient came to hospital with right up per quadrant pain. He had HIDA scan before which showed a low gallbladder ejection fraction. His u ltrasound is unremarkable. This admission, the patient underwent upper endoscopy and upper endoscop y essentially was normal. Subsequently, we did a gastric emptying scan and gastric emptying scan sh owed gastroparesis. His hemoglobin A1c is 5.5. His pathology report from stomach is negative for H . pylori and it came back positive for chronic inactive gastritis. At this point, gastroenterologis t recommended Stretta gastroparesis with Reglan. During this admission, we increased his hydralazin e 25 mg t.i.d. and we discontinued lisinopril because of hyperkalemia and instead we started metopro lol tartrate 25 mg p.o. b.i.d. We are prescribing Reglan 5 mg t.i.d. along with the Protonix 40 mg p.o. daily. At this point, we are doing therapeutic trial with Reglan and Protonix. If the patient improves his abdominal pain, then he may not need laparoscopic cholecystectomy, but if he does not improve, then he may need laparoscopic cholecystectomy that can be done as an outpatient procedure. At this point, the patient agreed to go home. The patient is seen and examined at bedside today. Leonard nagy see my progress note from today for further details.
--- NOTE | 2017-06-01 16:29 | EKG ---
Test Reason : Blood Pressure : / mmHG Vent. Rate : 100 BPM Atrial Rate : 100 BPM P-R Int : 124 ms QRS Dur : 092 ms QT Int : 312 ms P-R-T Axes : 035 005 000 degrees QTc Int : 402 ms Normal sinus rhythm Nonspecific ST abnormality Normal ECG Confirmed by RAKAN BRISENO, MARISSA ([id number]), editor farm journal YUMIKO MORALES ([id number]) on 06/01/2017 4:29:36 PM Referred By: RAKAN Confirmed By:MARISSA BLEDSOE MD
== END 2017-05-24 12:01 | disposition home or self-care (01) | DRG 74 ==
LOC: SCSER 02:18 → OBSVTOIN 03:40 → ONC 03:40 → T4-B 09:58
PROVIDERS: ADMIT Internal Medicine; ATTEND Internal Medicine
PROC: 0DB68ZX Excision of Stomach, Via Natural or Artificial Opening Endoscopic, Diagnostic (ICD-10-PCS; principal; 2017-05-22)
DX: E11.43 Type 2 diabetes mellitus with diabetic autonomic (poly)neuropathy (principal); E11.22 Type 2 diabetes mellitus with diabetic chronic kidney disease; E11.51 Type 2 diabetes mellitus with diabetic peripheral angiopathy without gangrene; K29.60 Other gastritis without bleeding; K31.84 Gastroparesis; E87.5 Hyperkalemia; I12.9 Hypertensive chronic kidney disease with stage 1 through stage 4 chronic kidney disease, or unspecified chronic kidney disease; T24.202A Burn of second degree of unspecified site of left lower limb, except ankle and foot, initial encounter; K52.9 Noninfective gastroenteritis and colitis, unspecified; N18.3 Chronic kidney disease, stage 3 (moderate); Z89.511 Acquired absence of right leg below knee; D63.1 Anemia in chronic kidney disease; K21.0 Gastro-esophageal reflux disease with esophagitis; E66.9 Obesity, unspecified; Z68.38 Body mass index [BMI] 38.0-38.9, adult; K76.0 Fatty (change of) liver, not elsewhere classified; E86.0 Dehydration; F17.211 Nicotine dependence, cigarettes, in remission
CPT/HCPCS: 36415; 36416; 78264; 80048; 80053; 82553; 82728; 83036; 83540; 83550; 83605; 83690; 84484; 85025; 88305; 88312; 90471; 90682; 90732; 93005; 96361; 96374; 96375; A9541; G0008; G0009; J0360; J1200; J1644; J2270; J2405; J2704; Q2036; S0028

== ENCOUNTER 2017-06-01 23:41 | Emergency (ER) | payer SELFPAY, OTHER ==
[2017-06-01] MEDS ORDERED: Ketorolac Tromethamine 30 MG/ML VIAL ONE (23:59)
[2017-06-02 00:09] LABS: #Basophils 0.1 thou/uL (0.0-0.2); #Eosinphils 0.1 thou/uL (0.0-0.7); #Lymphocytes 2.3 thou/uL (1.20-3.40); #Monocytes 0.7 thou/uL (0.11-0.59); #Neutrophils 6.3 thou/uL (1.40-6.50); %Basophils 0.9 % (0.0-1.0); %Eosinophils 1.5 % (0.0-10.0); %Lymphocytes 23.9 % (21.0-51.0); %Monocytes 6.9 % (0.0-10.0); Hematocrit 28.9 % (42.0-52.0); Mean Platelet Volume 4.6 fL (7.4-10.4); Red Blood Cell (RBC) Count 3.36 mill/uL (4.70-6.10); White Blood Cell (WBC) Count 9.4 thou/uL (4.8-10.8)
[2017-06-02 00:21] LABS: PTT 28.5 SEC (22.9-36.1)
[2017-06-02 00:22] LABS: Prothrombin Time 13.5 SEC (12.0-14.7)
[2017-06-02 00:27] LABS: ALT (SGPT) 10 U/L (8-55); AST (SGOT) 14 U/L (5-34); Alkaline Phosphatase 86 U/L (40-150); Anion Gap 12 mmol/L (10-20); BUN (Urea Nitrogen) 30 mg/dL (8.9-20.6); Bilirubin, Total 0.4 mg/dL (0.2-1.2); Calc. Creatinine Clearance 0 mL/min (70-130); Calcium 8.3 mg/dL (7.8-10.44); Carbon Dioxide 16 mmol/L (22-29); Chloride 113 mmol/L (98-107); Estimated GFR-MDRD 35; Globulin 4.2 g/dL (2.4-3.5); Protein, Total 6.9 g/dL (6.0-8.3)
[2017-06-02 00:49] LABS: Bilirubin Negative (Negative); Blood, Urine Small (Negative); Glucose, Urine (Dipstick) 100 mg/dL (Negative); Ketone, Urine Negative (Negative); Nitrite Negative (Negative); Protein, Urine (Dipstick) > or equal to 300 mg/dL (Neg-Trace); Urobilinogen 0.2 mg/dL (0.2-1.0)
[2017-06-02 00:58] LABS: Bacteria/HPF None Seen HPF (None Seen); Hyaline Casts/LPF NONE SEEN LPF (0-3 Hyaline); RBC/HPF 0-3 HPF (0-3); Squamous Epithelial None Seen HPF (0-3); WBC/HPF 0-3 HPF (0-3)
[2017-06-02] MEDS ORDERED: Bacitracin Zinc Ointment 30 gm TUBE ONE (02:00)
[2017-06-02 02:51] LABS: Lactic Acid - Sepsis 0.6 mmol/L (0.5-2.2)
[2017-06-02] MEDS ORDERED: cefTRIAXone\\ROCEPHIN 2 GM VIAL ONE (03:04)
[2017-06-02] MEDS ORDERED: Sodium Chloride 0.9% 100 ML ONE (03:15)
--- NOTE | 2017-06-02 13:56 | ULT ---
PRELIMINARY REPORT/[facility]/EMERGENCY AFTER HOURS PROCEDURE: EXAM: US Duplex Left Lower Extremity Veins EXAM DATE/TIME: Exam ordered 06/02/2017 12:42 AM CLINICAL HISTORY: 36 years old, male; Pain; Other: Pain, redness, swelling lle TECHNIQUE: Real-time ultrasound scan of the veins of the left lower extremity with color Doppler flow, spectral waveform analysis and compression. COMPARISON: No relevant prior studies available. FINDINGS: Deep veins: Normal. No DVT in the visualized common femoral, femoral, proximal deep femoral or popli teal veins. The veins demonstrate normal color flow, are normally compressible, with normal phasic f low and/or augmentation response. Superficial veins: Normal. No thrombus in the visualized great saphenous vein. Soft tissues: There is soft tissue edema of the LEFT lower extremity. No popliteal cyst. IMPRESSION: No evidence for acute DVT. Nonspecific LEFT lower extremity soft tissue edema. Correlate for cellulitis. Thank you for allowing us to participate in the care of your patient. Dictated and Authenticated by: Ramsey Ro MD 06/02/2017 3:13 AM Central Time ([place] \T\ [place]) FINAL REPORT LEFT LOWER EXTREMITY VENOUS DUPLEX ULTRASOUND INCLUDING COLOR AND SPECTRAL DOPPLER IMAGING: EMERGENT AFTER HOURS EXAM TIME: 12:54 a.m. DATE: 06/02/17. No evidence of deep venous thrombosis. Nonspecific subcutaneous edema and fat stranding. POS: [facility]
== END 2017-06-02 08:49 | disposition home or self-care (01) ==
LOC: SCSER 23:41
DX: L03.116 Cellulitis of left lower limb (principal); E86.0 Dehydration; T24.002D Burn of unspecified degree of unspecified site of left lower limb, except ankle and foot, subsequent encounter; I12.9 Hypertensive chronic kidney disease with stage 1 through stage 4 chronic kidney disease, or unspecified chronic kidney disease; E10.22 Type 1 diabetes mellitus with diabetic chronic kidney disease; N18.3 Chronic kidney disease, stage 3 (moderate); Z89.511 Acquired absence of right leg below knee; Z87.891 Personal history of nicotine dependence; Z79.899 Other long term (current) drug therapy; X08.8XXD Exposure to other specified smoke, fire and flames, subsequent encounter
CPT/HCPCS: 36416; 80053; 81003; 81015; 82550; 83605; 85025; 85379; 85610; 85730; 86140; 87040; 96361; 96365; 96367; 96375; J0696; J1885; J3370; J7050

== ENCOUNTER 2017-06-11 00:53 | Emergency (ER) | payer SELFPAY ==
[2017-06-11] MEDS ORDERED: Nitroglycerin 2% Ointment 1 INCH/1 GM Packet ONE (01:31)
[2017-06-11 01:35] LABS: #Eosinphils 0.2 thou/uL (0.0-0.7); #Monocytes 0.6 thou/uL (0.11-0.59); #Neutrophils 6.8 thou/uL (1.40-6.50); %Basophils 0.5 % (0.0-1.0); %Eosinophils 1.6 % (0.0-10.0); %Lymphocytes 20.5 % (21.0-51.0); %Monocytes 6.5 % (0.0-10.0); Hematocrit 28.1 % (42.0-52.0); Mean Platelet Volume 6.3 fL (7.4-10.4); Red Blood Cell (RBC) Count 3.13 mill/uL (4.70-6.10); White Blood Cell (WBC) Count 9.6 thou/uL (4.8-10.8)
[2017-06-11 01:41] LABS: Prothrombin Time 13.2 SEC (12.0-14.7)
[2017-06-11 01:51] LABS: ALT (SGPT) 8 U/L (8-55); AST (SGOT) 13 U/L (5-34); Alkaline Phosphatase 82 U/L (40-150); Anion Gap 11 mmol/L (10-20); BUN (Urea Nitrogen) 43 mg/dL (8.9-20.6); Bilirubin, Total 0.3 mg/dL (0.2-1.2); CK (CPK) 175 U/L (30-200); Calc. Creatinine Clearance 0 mL/min (70-130); Calcium 8.1 mg/dL (7.8-10.44); Carbon Dioxide 15 mmol/L (22-29); Chloride 117 mmol/L (98-107); Estimated GFR-MDRD 30; Globulin 4.2 g/dL (2.4-3.5); Lipase 25 U/L (8-78); Protein, Total 6.9 g/dL (6.0-8.3)
[2017-06-11 01:54] LABS: Troponin I Less than 0.010 ng/mL (< 0.028)
[2017-06-11] MEDS ORDERED: Ondansetron ODT 4 MG TAB ONE (02:13)
[2017-06-11] MEDS ORDERED: traMADol HCl 50 MG TAB ONE (03:02)
--- NOTE | 2017-06-11 08:21 | RAD ---
UPRIGHT PORTABLE CHEST ONE VIEW: History: 36-year-old male with dyspnea and shortness of breath, leg swelling. Comparison: 04-27-17 FINDINGS: Poor inspiratory effort resulting in some vascular crowding. Heart size is within normal limits. The lungs are clear. IMPRESSION: Poor inspiration. No acute intrathoracic disease. POS: [facility]
== END 2017-06-11 03:08 | disposition home or self-care (01) ==
LOC: ERS 00:53
DX: I12.9 Hypertensive chronic kidney disease with stage 1 through stage 4 chronic kidney disease, or unspecified chronic kidney disease (principal); E11.22 Type 2 diabetes mellitus with diabetic chronic kidney disease; N18.3 Chronic kidney disease, stage 3 (moderate); R60.9 Edema, unspecified; R11.10 Vomiting, unspecified
CPT/HCPCS: 36415; 71010; 80053; 82553; 83690; 83880; 84484; 85025; 85610; 85730; 93005; Q0162

== ENCOUNTER 2017-07-09 16:38 | Emergency (ER) | payer MEDICAID, OTHER, SELFPAY ==
[2017-07-09 17:30] LABS: #Basophils 0.1 thou/uL (0.0-0.2); #Eosinphils 0.2 thou/uL (0.0-0.7); #Lymphocytes 1.6 thou/uL (1.20-3.40); #Monocytes 0.6 thou/uL (0.11-0.59); #Neutrophils 3.9 thou/uL (1.40-6.50); %Basophils 1.1 % (0.0-1.0); %Eosinophils 3.5 % (0.0-10.0); %Monocytes 9.4 % (0.0-10.0); Hematocrit 25.4 % (42.0-52.0); Mean Platelet Volume 5.9 fL (7.4-10.4); Red Blood Cell (RBC) Count 2.95 mill/uL (4.70-6.10); White Blood Cell (WBC) Count 6.4 thou/uL (4.8-10.8)
[2017-07-09 17:44] LABS: ALT (SGPT) 8 U/L (8-55); AST (SGOT) 12 U/L (5-34); Alkaline Phosphatase 93 U/L (40-150); Anion Gap 11 mmol/L (10-20); BUN (Urea Nitrogen) 33 mg/dL (8.9-20.6); Bilirubin, Total 0.4 mg/dL (0.2-1.2); CK (CPK) 110 U/L (30-200); Calc. Creatinine Clearance 0 mL/min (70-130); Calcium 8.3 mg/dL (7.8-10.44); Carbon Dioxide 16 mmol/L (22-29); Chloride 115 mmol/L (98-107); Estimated GFR-MDRD 24; Globulin 4.1 g/dL (2.4-3.5); Lipase 12 U/L (8-78); Protein, Total 6.7 g/dL (6.0-8.3); Troponin I 0.011 ng/mL (< 0.028)
--- NOTE | 2017-07-09 18:20 | RAD ---
PORTABLE CHEST 07/09/17 PROVIDED CLINICAL HISTORY: Chest pain. FINDINGS: Comparison 06/11/17. Evaluation is limited by patient body habitus. The lungs are hypoinflated. The heart appears enlarged . No focal consolidation, pleural fluid, or pneumothorax evident. IMPRESSION: Limited exam without evidence for acute cardiopulmonary process. POS: [facility]
== END 2017-07-09 18:22 | disposition home or self-care (01) ==
LOC: SCSER 16:38
DX: R07.89 Other chest pain (principal); E11.9 Type 2 diabetes mellitus without complications; I12.9 Hypertensive chronic kidney disease with stage 1 through stage 4 chronic kidney disease, or unspecified chronic kidney disease; N18.3 Chronic kidney disease, stage 3 (moderate); Z87.891 Personal history of nicotine dependence; Z79.899 Other long term (current) drug therapy
CPT/HCPCS: 71010; 80053; 82550; 82553; 83690; 84484; 85025; 93005

== ENCOUNTER 2017-07-15 19:12 | Emergency (ER) | payer SELFPAY ==
[2017-07-15 20:43] LABS: #Basophils 0.1 thou/uL (0.0-0.2); #Eosinphils 0.2 thou/uL (0.0-0.7); #Monocytes 0.8 thou/uL (0.11-0.59); #Neutrophils 5.2 thou/uL (1.40-6.50); %Basophils 0.9 % (0.0-1.0); %Eosinophils 2.5 % (0.0-10.0); %Lymphocytes 24.2 % (21.0-51.0); %Monocytes 9.7 % (0.0-10.0); Mean Platelet Volume 6.3 fL (7.4-10.4); Red Blood Cell (RBC) Count 3.26 mill/uL (4.70-6.10); White Blood Cell (WBC) Count 8.2 thou/uL (4.8-10.8)
[2017-07-15 21:05] LABS: ALT (SGPT) 9 U/L (8-55); AST (SGOT) 16 U/L (5-34); Alkaline Phosphatase 97 U/L (40-150); Anion Gap 11 mmol/L (10-20); BUN (Urea Nitrogen) 41 mg/dL (8.9-20.6); Bilirubin, Total 0.3 mg/dL (0.2-1.2); Calc. Creatinine Clearance 0 mL/min (70-130); Calcium 8.4 mg/dL (7.8-10.44); Carbon Dioxide 14 mmol/L (22-29); Chloride 115 mmol/L (98-107); Estimated GFR-MDRD 20; Globulin 4.8 g/dL (2.4-3.5); Protein, Total 7.7 g/dL (6.0-8.3)
[2017-07-16] MEDS ORDERED: Ondansetron ODT 4 MG TAB ONE (01:09)
== END 2017-07-16 01:30 | disposition home or self-care (01) ==
LOC: ERS 19:12
DX: S81.802A Unspecified open wound, left lower leg, initial encounter (principal); E11.22 Type 2 diabetes mellitus with diabetic chronic kidney disease; I12.9 Hypertensive chronic kidney disease with stage 1 through stage 4 chronic kidney disease, or unspecified chronic kidney disease; N18.3 Chronic kidney disease, stage 3 (moderate); Z87.891 Personal history of nicotine dependence; X08.8XXA Exposure to other specified smoke, fire and flames, initial encounter
CPT/HCPCS: 36415; 80053; 85025; 87040; 99284; Q0162

== ENCOUNTER 2017-08-15 16:49 | Emergency (ER) | payer SELFPAY ==
[2017-08-15] MEDS ORDERED: Acetaminophen 500 MG TAB ONE (18:50)
--- NOTE | 2017-08-15 19:56 | RAD ---
PORTABLE CHEST 08/15/17 PROVIDED CLINICAL HISTORY: Cough. FINDINGS: Comparison 07/09/17. Evaluation is limited by patient body habitus. The cardiac silhouette appears enlarged. No definite f ocal consolidation, pleural fluid or pneumothorax apparent. IMPRESSION: Limited study without evidence for an acute cardiopulmonary process. POS: [facility]
== END 2017-08-15 19:31 | disposition home or self-care (01) ==
LOC: ERS 16:49
DX: B34.9 Viral infection, unspecified (principal); E11.9 Type 2 diabetes mellitus without complications; I12.9 Hypertensive chronic kidney disease with stage 1 through stage 4 chronic kidney disease, or unspecified chronic kidney disease; N18.3 Chronic kidney disease, stage 3 (moderate); Z87.891 Personal history of nicotine dependence; Z79.899 Other long term (current) drug therapy
CPT/HCPCS: 71045

== ENCOUNTER 2017-11-20 11:58 | Observation (INO) | payer SELFPAY ==
[2017-11-20] MEDS ORDERED: Nitroglycerin 2% Ointment 1 INCH/1 GM Packet ONE (12:27)
[2017-11-20 12:32] LABS: #Basophils 0.1 thou/uL (0.0-0.2); #Eosinphils 0.1 thou/uL (0.0-0.7); #Lymphocytes 1.7 thou/uL (1.20-3.40); #Monocytes 0.4 thou/uL (0.11-0.59); #Neutrophils 4.8 thou/uL (1.40-6.50); %Eosinophils 1.7 % (0.0-10.0); %Lymphocytes 23.6 % (21.0-51.0); %Monocytes 6.1 % (0.0-10.0); %Neutrophils 67.6 % (42.0-75.0); Hemoglobin 9.6 g/dL (14.0-18.0); Mean Corpuscular HGB CONC 32.3 g/dL (32.0-36.0); Mean Corpuscular Hemoglobin 27.3 pg (27.0-31.0); Mean Corpuscular Volume 84.4 fl (80.0-94.0); Mean Platelet Volume 6.6 fL (7.4-10.4); Platelet Count 260 thou/uL (130-400); RBC Distribution Width 14.1 % (11.5-14.5); Red Blood Cell (RBC) Count 3.51 mill/uL (4.70-6.10); White Blood Cell (WBC) Count 7.1 thou/uL (4.8-10.8)
[2017-11-20 12:40] LABS: ALT (SGPT) 10 U/L (8-55); AST (SGOT) 14 U/L (5-34); Albumin 2.8 g/dL (3.5-5.0); Alkaline Phosphatase 91 U/L (40-150); Anion Gap 12 mmol/L (10-20); BUN (Urea Nitrogen) 41 mg/dL (8.9-20.6); Bilirubin, Total 0.4 mg/dL (0.2-1.2); Calc. Creatinine Clearance 0 mL/min (70-130); Calcium 8.3 mg/dL (7.8-10.44); Carbon Dioxide 15 mmol/L (22-29); Chloride 117 mmol/L (98-107); Estimated GFR-MDRD 27; Globulin 4.2 g/dL (2.4-3.5); Glucose 132 mg/dL (70-105); Lipase 12 U/L (8-78); Potassium 5.1 mmol/L (3.5-5.1); Sodium 139 mmol/L (136-145)
[2017-11-20 12:41] LABS: CKMB 4.2 ng/mL (0-6.6); Troponin I Less than 0.010 ng/mL (< 0.028)
--- NOTE | 2017-11-20 13:09 | RAD ---
PORTABLE CHEST ONE VIEW: Date: 11-20-17 Time: 12:37 p.m. History: Chest pain. FINDINGS: Comparison made with exam of 07-09-17. The heart size is normal. The lungs are well expanded without focal areas of consolidation, pneumotho rax, or pleural effusions. IMPRESSION: No radiographic evidence of acute cardiopulmonary process. POS: [facility]
[2017-11-20] MEDS ORDERED: Lidocaine Viscous Sol 2% 15 ml UD Cup ONE (13:50)
[2017-11-20] MEDS ORDERED: Mag-Al Plus 1200 MG/1200 MG/120 MG/30 ML UDCUP ONE (13:51)
--- NOTE | 2017-11-20 14:58 | CT ---
NONCONTRAST HEAD CT: HISTORY: Headache x 2 days. Left-sided numbness. COMPARISON: 12/29/14. TECHNIQUE: Noncontrast head CT is performed from the skull base to the skull vertex. FINDINGS: No parenchymal hemorrhage. No extraaxial hematoma. No midline shift. Basilar cisterns are patent. Brain volume, age appropriate. Cortical cadena-white matter differentiation is preserved. The ventricles and sulci are patent and symmetric. Calvarium is intact. Adequate aeration of the sinuses and mastoid air cells. IMPRESSION: No acute intracranial process. Further evaluation with MRI if clinically warranted. POS: [facility]
[2017-11-20] MEDS ORDERED: Acetaminophen 500 MG TAB ONE (15:09)
[2017-11-20 15:45] LABS: Troponin I Less than 0.010 ng/mL (< 0.028)
[2017-11-20 16:52] VITALS: BMI 39.5
[2017-11-20] MEDS ORDERED: Dextrose 50% Abboject 50 ML SYRINGE SLOW IVP PRN (18:18)
[2017-11-20] MEDS ORDERED: Nitroglycerin 0.4 MG TAB (25 Tab Bottle) PO PRN (18:18)
[2017-11-20] MEDS ORDERED: hydrALAZINE 20 MG/ML VIAL SLOW IVP PRN (18:18)
[2017-11-20] MEDS ORDERED: Acetaminophen 325 MG TAB PO PRN (18:18)
[2017-11-20] MEDS ORDERED: Dextrose 5% in Water 1,000 ML IV PRN (18:18)
[2017-11-20 19:29] LABS: Troponin I Less than 0.010 ng/mL (< 0.028)
[2017-11-20] MEDS: Heparin 5,000 UNITS/ML VIAL SC SCH (20:57)
[2017-11-20] MEDS: hydrALAZINE 25 MG TAB PO SCH (20:59)
[2017-11-20] MEDS: Carvedilol 3.125 MG TAB PO SCH (20:59)
[2017-11-20] MEDS: Docusate 100 MG CAP PO SCH (21:00)
[2017-11-20] MEDS: Metoprolol Tartrate 25 MG TAB PO SCH (21:00)
[2017-11-20] MEDS: cloNIDine 0.1 MG TAB PO SCH (21:00)
[2017-11-20] MEDS: Nitroglycerin 2% Ointment 1 INCH/1 GM Packet TOP SCH (21:01)
--- NOTE | 2017-11-20 23:44 | HP ---
PRIMARY CARE PHYSICIAN: Dr. Kauffman at the [facility]. CHIEF COMPLAINT: Chest pain and left-sided numbness. HISTORY OF PRESENT ILLNESS: Mr. Beltrán is a pleasant 37-year-old gentleman that has a history of hyp ertension, diabetes mellitus as well as peripheral vascular disease. He is status post a right BKA. He says that he began having chest pain yesterday. He said he was basically just sitting down visit ing with his daughter. He says that the pain felt like somebody was pushing him in the center of his chest. It was nonradiating, but he did notice some numbness on the left side from the arm all the w ay down to his leg around about the same time. He says that he thought it could be his blood pressur e, so he took his blood pressure pills and went to sleep. The following day, he was still having the pain. He says he was somewhat nauseated with it and was concerned, so he came to the hospital for e valuation. He says as well as he was in the ER, he started having cold sweats and says that he has b een feeling tired easily. He also admits to feeling short of breath on exertion for over 3 months an d also wakes up through the night short of breath. He is also complaining of lower extremity edema a s well as palpitations and feeling dizzy and for this reason, he is being placed in observation. REVIEW OF SYSTEMS: Constitutional: No fevers, chills, no night sweats, no weight loss. HEENT: He denies any headache, no dizziness, no visual changes, no sore throat, rhinorrhea, neck pain, no adeno jose. Pulmonary: No hemoptysis, no cough, no wheezing. Cardiovascular: As stated in the history of present illness. Gastrointestinal: No abdominal pain. He has had some nausea, no vomiting, no c hange in bowels. Genitourinary: No urinary frequency, hematuria, no hesitancy. Neurologic: No foc al weakness, numbness, no seizures. Psychiatric: No symptoms of anxiety or depression. Skin And In tegument: No skin changes. No rash. PAST MEDICAL HISTORY: Significant for diabetes mellitus, peripheral vascular disease, hypertension, chronic kidney disease, and cataracts. PAST SURGICAL HISTORY: He has had a right BKA. ALLERGIES: No known drug allergies. SOCIAL HISTORY: He is , has two children. He is a nonsmoker, nondrinker. FAMILY HISTORY: Significant for diabetes, hypertension. Father also had colon cancer and lung cance r. Mother had congestive heart failure. CURRENT MEDICATIONS: Include pantoprazole 40 mg daily, hydralazine 50 mg twice a day, carvedilol 3.1 25 mg twice daily, metoprolol 25 mg twice a day, and clonidine 0.1 mg twice a day. PHYSICAL EXAMINATION: GENERAL: He is alert and oriented. He appears to be in no acute distress. When I [facility] into the [facility], he was sitting up in the bed, watching TV and eating dinner. VITAL SIGNS: Blood pressure was 132/80, heart rate 100, respiratory rate of 20, temperature is 98.3. HEENT: His pupils are equal, round, and reactive. Extraocular muscles are intact. His sclerae anic teric. Throat no erythema, no exudates. NECK: No adenopathy, no bruits. LUNGS: Clear to auscultation. There is no wheezing or rales. CARDIOVASCULAR: He has a normal S1, S2. I did not appreciate an S3 or S4. No murmurs, clicks, or r ubs. ABDOMEN: Soft, obese, it is nontender, nondistended. Positive for bowel sounds. No rebound, no gua rding. EXTREMITIES: There is no edema. He has a scar on the left marie. He has got palpable dorsalis pedis pulses. NEUROLOGICALLY: The exam is grossly nonfocal with 5/5 muscle strength in his upper extremities and h is lower leg. He was able to dorsiflex the foot and it was grossly dorsiflex and plantarflex and the neurological exam is grossly nonfocal. SIGNIFICANT LABORATORY DATA AND X-RAY FINDINGS: Sodium 139, potassium 5.1, chloride is 117, CO2 is 1 5, BUN of 41, creatinine 2.73, glucose is 132. White blood cell count 7.1, hemoglobin 9.6, hematocri t is 29.6, platelet count is 260. Troponin is less than 0.010. ASSESSMENT AND PLAN: This is a pleasant 37-year-old gentleman who presents with chest pain as well a s left upper and lower extremity numbness and subjective weakness. He has risk factors for both nisreen nary artery disease as well as cerebrovascular disease and for this reason, he will be placed in obse rvation. We will get a nuclear stress test to rule out coronary artery disease as well as an echocar diogram. Given his symptoms of PND and orthopnea as well as the stroke-like symptoms. For the left upper and lower extremity weakness, an MRI will be obtained as well as carotid Dopplers and an echo. He will be placed on aspirin therapy. We will get his lipid levels and further recomme ndations will be based on the results of his tests.
[2017-11-21 05:00] LABS: #Eosinphils 0.2 thou/uL (0.0-0.7); #Monocytes 0.6 thou/uL (0.11-0.59); #Neutrophils 4.5 thou/uL (1.40-6.50); %Eosinophils 2.2 % (0.0-10.0); %Lymphocytes 27.9 % (21.0-51.0); %Monocytes 7.9 % (0.0-10.0); %Neutrophils 61.9 % (42.0-75.0); Hemoglobin 8.6 g/dL (14.0-18.0); Mean Corpuscular HGB CONC 33.2 g/dL (32.0-36.0); Mean Corpuscular Hemoglobin 28.4 pg (27.0-31.0); Mean Corpuscular Volume 85.7 fl (80.0-94.0); Mean Platelet Volume 6.5 fL (7.4-10.4); Platelet Count 249 thou/uL (130-400); RBC Distribution Width 14.1 % (11.5-14.5); Red Blood Cell (RBC) Count 3.03 mill/uL (4.70-6.10); White Blood Cell (WBC) Count 7.2 thou/uL (4.8-10.8)
[2017-11-21 05:14] LABS: Anion Gap 8 mmol/L (10-20); BUN (Urea Nitrogen) 43 mg/dL (8.9-20.6); Calc. Creatinine Clearance 76 mL/min (70-130); Calcium 8.3 mg/dL (7.8-10.44); Carbon Dioxide 20 mmol/L (22-29); Cardiac Risk 3.5 (Less than 4.5); Chloride 114 mmol/L (98-107); Cholesterol 98 mg/dl (< 200 Desired); Estimated GFR-MDRD 27; Glucose 118 mg/dL (70-105); HDL Cholesterol 28 mg/dL (>60 Neg Risk); LDL Cholesterol, Calculated 57 mg/dL; Potassium 5.3 mmol/L (3.5-5.1); Sodium 137 mmol/L (136-145); Triglycerides 63 mg/dL (Less than 150)
[2017-11-21] MEDS: Nitroglycerin 2% Ointment 1 INCH/1 GM Packet TOP SCH ×3 (06:02→22:01)
--- NOTE | 2017-11-21 08:33 | ULT ---
CAROTID ULTRASOUND WITH JONES SCALE AND DOPPLER DUPLEX COLOR FLOW IMAGING SPECTRAL ANALYSIS PERFORMED: CLINICAL INDICATION: TIA FINDINGS: There is no significant atherosclerotic calcification of the carotid arteries. PEAK SYSTOLIC VELOCITY (CM/S): Right CCA 75 Left CCA 80 Right ICA 80 Left ICA 76 There is antegrade flow within the visualized bilateral vertebral arteries. IMPRESSION: 1. No hemodynamically significant stenosis of the right internal carotid artery. 2. No hemodynamically significant stenosis of the left internal carotid artery. POS: [facility]
[2017-11-21] MEDS: hydrALAZINE 25 MG TAB PO SCH ×2 (08:37→21:36)
[2017-11-21] MEDS: cloNIDine 0.1 MG TAB PO SCH ×2 (08:37→21:35)
[2017-11-21] MEDS: Aspirin 325 mg Enteric Coated Tablet PO SCH (08:37)
[2017-11-21] MEDS: Docusate 100 MG CAP PO SCH ×2 (08:38→21:36)
[2017-11-21] MEDS: Heparin 5,000 UNITS/ML VIAL SC SCH ×3 (08:44→21:36)
[2017-11-21] MEDS: Metoprolol Tartrate 25 MG TAB PO SCH ×2 (09:36→21:37)
[2017-11-21] MEDS: Carvedilol 3.125 MG TAB PO SCH ×2 (09:36→21:37)
--- NOTE | 2017-11-21 10:25 | MRI ---
MRI BRAIN NONCONTRAST: HISTORY: 37-year-old male with headache and left-sided numbness (hypesthesia). TIA. FINDINGS: The ventricles are normal in size and configuration. There is no major intraaxial signal abnormality , restricted diffusion, midline shift or any other mass effect, or recent intraaxial hemorrhage. Ther e is prominence of the extra-axial space in the anterior and anteromedial aspect of the right middle cranial fossa. This may or may not represent a small, thin arachnoid cyst. It causes no significant m ass effect upon the temporal tip. There is hyperostosis frontalis interna. There is no Chiari I malfo rmation. The clivus has normal bone marrow signal. IMPRESSION: No major pathology identified. rajan POS: [facility]
[2017-11-21] MEDS: Mag-Al 1200 mg/1200 mg/30 ML UDCUP PO PRN (17:36)
--- NOTE | 2017-11-21 17:52 | PDOC.PN ---
- Subjective Encounter Start Date: 11/21/17 Encounter Start Time: 17:51 Mr. Beltrán was seen today in follow-up. He says the numbness and weakness has improved on the left side - Objective Resuscitation Status: Resuscitation Status FULL:Full Resuscitation MAR Reviewed: Yes Vital Signs & Weight: Vital Signs (12 hours) Temp Pulse Pulse Pulse Pulse Resp BP 11/21/17 15:30 97.8 F 87 16 11/21/17 14:02 83 84 86 143/90 H 11/21/17 09:45 80 180/94 H 11/21/17 08:00 98.0 F 78 16 BP BP BP Pulse Ox Pulse Ox Pulse Ox Pulse Ox 11/21/17 15:30 136/74 95 11/21/17 14:02 145/94 H 143/76 H 97 96 95 11/21/17 09:45 11/21/17 08:00 186/99 H 97 Weight Weight 316 lb 8 oz I&O: 11/20/17 11/21/17 11/22/17 06:59 06:59 06:59 Output Total 450 700 Balance -450 -700 Result Diagrams: 11/21/17 04:34 11/21/17 04:34 Additional Labs: Accuchecks 11/21/17 11/21/17 11/20/17 16:30 10:42 20:08 POC Glucose 110 97 143 H Phys Exam - Physical Examination HEENT: PERRLA Respiratory: no wheezing, no rales, no rhonchi, clear to auscultation bilateral Cardiovascular: RRR, no significant murmur, no rub Gastrointestinal: soft, non-tender, no distention, positive bowel sounds Musculoskeletal: no edema Dx/Plan (1) TIA (transient ischemic attack) Status: Acute (2) Chest pain Code(s): R07.9 - CHEST PAIN, UNSPECIFIED Status: Acute (3) Chronic kidney disease, stage 3 Code(s): N18.3 - CHRONIC KIDNEY DISEASE, STAGE 3 (MODERATE) Status: Acute (4) Hypertension Code(s): I10 - ESSENTIAL (PRIMARY) HYPERTENSION Status: Chronic (5) Obesity (BMI 30-39.9) Code(s): E66.9 - OBESITY, UNSPECIFIED Status: Chronic - Plan * TIA- MRI and carotid dopplers were negative, and his symptoms are improving. * Continue aspirin * Chest pain- improved as well- will await the final stress test results * CKD - stable- he is a bit anemia, - will consult Nephrology- ? need for Epogen * HTN- blood pressure is a bit labile- will monitor. * Taproom Attendant for heart healthy diet
[2017-11-21] MEDS ORDERED: Atorvastatin Calcium 20 MG TAB PO SCH (21:00)
[2017-11-22] MEDS ORDERED: Ondansetron ODT 4 MG TAB PO PRN (01:26)
[2017-11-22 02:09] LABS: Troponin I Less than 0.010 ng/mL (< 0.028)
[2017-11-22] MEDS: Nitroglycerin 2% Ointment 1 INCH/1 GM Packet TOP SCH (06:22)
[2017-11-22] MEDS: Mag-Al 1200 mg/1200 mg/30 ML UDCUP PO PRN (07:55)
[2017-11-22] MEDS: Aspirin 325 mg Enteric Coated Tablet PO SCH (08:05)
[2017-11-22] MEDS: hydrALAZINE 25 MG TAB PO SCH (08:05)
[2017-11-22] MEDS: cloNIDine 0.1 MG TAB PO SCH (08:05)
[2017-11-22] MEDS: Docusate 100 MG CAP PO SCH (08:05)
[2017-11-22] MEDS: Heparin 5,000 UNITS/ML VIAL SC SCH (08:05)
[2017-11-22 08:59] LABS: Anion Gap 10 mmol/L (10-20); BUN (Urea Nitrogen) 45 mg/dL (8.9-20.6); Calc. Creatinine Clearance 81 mL/min (70-130); Calcium 8.3 mg/dL (7.8-10.44); Carbon Dioxide 19 mmol/L (22-29); Chloride 115 mmol/L (98-107); Estimated GFR-MDRD 28; Glucose 109 mg/dL (70-105); Potassium 5.6 mmol/L (3.5-5.1); Sodium 138 mmol/L (136-145)
[2017-11-22] MEDS: Carvedilol 3.125 MG TAB PO SCH (10:35)
[2017-11-22] MEDS: Metoprolol Tartrate 25 MG TAB PO SCH (10:35)
--- NOTE | 2017-11-22 11:34 | PDOC.PN ---
- Subjective Encounter Start Date: 11/22/17 Encounter Start Time: 11:32 Mr. Beltrán was seen today in follow-up. He does not have any complaints. He denies chest pain or shortness of breath. - Objective Resuscitation Status: Resuscitation Status FULL:Full Resuscitation MAR Reviewed: Yes Vital Signs & Weight: Vital Signs (12 hours) Temp Pulse Resp BP BP Pulse Ox 11/22/17 08:00 97.8 F 90 16 11/22/17 07:37 97.8 F 90 16 198/86 H 96 11/22/17 06:05 82 18 178/79 H Weight Weight 316 lb 8 oz I&O: 11/21/17 11/22/17 11/23/17 06:59 06:59 06:59 Intake Total 935 Output Total 450 700 Balance -450 235 Result Diagrams: 11/21/17 04:34 11/22/17 08:28 Additional Labs: Accuchecks 11/22/17 11/22/17 11/21/17 10:54 06:06 21:08 POC Glucose 180 H 115 H 157 H 11/21/17 16:30 POC Glucose 110 Phys Exam - Physical Examination HEENT: PERRLA Respiratory: no wheezing, no rales, no rhonchi, clear to auscultation bilateral Cardiovascular: RRR, no significant murmur, no rub Gastrointestinal: soft, non-tender, no distention, positive bowel sounds Musculoskeletal: edema present trace pedal edema Dx/Plan (1) TIA (transient ischemic attack) Status: Acute (2) Chest pain Code(s): R07.9 - CHEST PAIN, UNSPECIFIED Status: Acute (3) Chronic kidney disease, stage 3 Code(s): N18.3 - CHRONIC KIDNEY DISEASE, STAGE 3 (MODERATE) Status: Acute (4) Hypertension Code(s): I10 - ESSENTIAL (PRIMARY) HYPERTENSION Status: Chronic (5) Obesity (BMI 30-39.9) Code(s): E66.9 - OBESITY, UNSPECIFIED Status: Chronic - Plan * Hyperkalemia- will give a dose of Kayexalate- and discussed low potassium diet - follow-up with architectural sales consultant * HTN- will increase Carvediolol to 6.25 mg twice a day and continue titration as an outpatient * DM- good control * CKD- as per nephrology. * Chest pain- resolved- Stress test is negative * Will add an aspirin daily for Possible angina, and TIA, and have discussed healthier eating habits and increasing activity
[2017-11-22] MEDS ORDERED: Regadenoson 0.4 MG/5 ML SYRINGE ONE (11:38)
--- NOTE | 2017-11-22 12:04 | NM ---
RADIONUCLUDE STRES/REST MYOCARDIAL PERFUSION SCAN WITH CT ATTENUATION CORRECTION AND SPECT IMAGING: LEFT VENTRICULAR WALL MOTION EVALUATION AND EJECTION FRACTION: HISTORY: Chest pain. FINDINGS: Lexiscan protocol was used. There was homogeneous uptake of radiotracer throughout the left ventricu lar myocardium. No focal perfusion defect or reversibility. QGS analysis of gated SPECT images shows no focal wall motion abnormalities. Left ventricular ejecti on fraction is calculated at 64%. IMPRESSION: 1. Normal myocardial perfusion scan. 2. Normal left ventricular ejection fraction. POS: OFF
[2017-11-22 12:13] VITALS: BP 141/74; TEMP 97.3
--- NOTE | 2017-11-22 12:34 | CON ---
DATE OF CONSULTATION: 11/22/2017 CONSULTING PHYSICIAN: Dr. Robison. REASON FOR CONSULTATION: Acute kidney injury. REASON FOR ADMISSION: Chest pain. HISTORY OF PRESENT ILLNESS: This is a 37-year-old male with history of type 2 diabetes mellitus, per ipheral vascular disease, and hypertension, who came to the hospital with above complaints and Nephro logy is consulted for acute kidney injury on chronic kidney disease. His baseline creatinine is arou nd 2.3 and 2.4, now creatinine is 2.7. Potassium was 5.3. Patient denies any complaints. He is hav ing stress test today and hoping to go home today. No fever or chills. No nausea or vomiting. PAST MEDICAL HISTORY: Positive for type 2 diabetes mellitus, peripheral vascular disease, hypertensi on, CKD, and cataracts. PAST SURGICAL HISTORY: Right BKA. ALLERGIES: No known drug allergies. SOCIAL HISTORY: No smoking, alcohol, or illicit drug abuse. FAMILY HISTORY: Positive for diabetes, hypertension. HOME MEDICATIONS: Protonix, hydralazine, carvedilol, metoprolol, and clonidine. REVIEW OF SYSTEMS: The following complete review of systems was negative, unless otherwise mentioned in the HPI or below: Constitutional: Weight loss or gain, ability to conduct usual activities. Skin: Rash, itching. Eyes: Double vision, pain. ENT/Mouth: Nose bleeding, neck stiffness, pain, tenderness. Cardiovascular: Palpitations, dyspnea on exertion, orthopnea. Respiratory: Shortness of breath, wheezing, cough, hemoptysis, fever or night sweats. Gastrointestinal: Poor appetite, abdominal pain, heartburn, nausea, vomiting, constipation, or diarrh ea. Genitourinary: Urgency, frequency, dysuria, nocturia. Musculoskeletal: Pain, swelling. Neurologic/Psychiatric: Anxiety, depression. Allergy/Immunologic: Skin rash, bleeding tendency. PHYSICAL EXAMINATION: GENERAL: This is a morbidly obese male in no apparent distress. VITAL SIGNS: Temperature 97.8, pulse 90, respiratory rate 18, and blood pressure 170/79. HEENT: Atraumatic, normocephalic. Oral mucosa is moist. NECK: Supple. CVS: S1 and S2 heard. Rate and rhythm regular. RESPIRATORY: Clear. GI: Abdomen is soft. MUSCULOSKELETAL: No tenderness. No edema. DERMATOLOGIC: No skin rash. NEUROLOGIC: Alert and awake. PSYCHIATRIC: Mood and affect. LABORATORY DATA: Hemoglobin is 8.6, potassium 5.3, BUN is 43, and creatinine is 2.7. ASSESSMENT AND PLAN: 1. Acute kidney injury on chronic kidney disease stage 3. Need close monitor. Repeat labs today. 2. Hyperkalemia. 3. Metabolic acidosis. 4. Edema, controlled. 5. Hypertension. 6. Anemia, which is chronic. 7. Recheck labs. Avoid nephrotoxins. We will follow. No acute indication for dialysis.
--- NOTE | 2017-11-22 14:45 | DIS ---
DATE OF ADMISSION: 11/20/2017 DATE OF DISCHARGE: 11/22/2017 PRIMARY CARE PHYSICIAN: Dr. Kauffman. DISCHARGE DISPOSITION: Home. PRIMARY DISCHARGE DIAGNOSES: 1. Chest pain. 2. Transient ischemic attack. 3. Hypertension, uncontrolled. 4. Chronic kidney disease stage 3. 5. Morbid obesity. DISCHARGE MEDICATIONS: Include pantoprazole 40 mg daily, metoprolol 25 mg twice a day, hydralazine 5 0 mg twice daily, clonidine 0.1 mg twice daily, carvedilol 6.25 mg twice a day and aspirin 81 mg a da y. CODE STATUS: FULL CODE. ALLERGIES: No known drug allergies. PROCEDURES DONE DURING ADMISSION: The patient had a CT scan of the brain which was negative for any acute intracranial process. The patient also had an MRI of the brain again was negative for any sign ificant pathology. He had bilateral carotid Dopplers which were negative for any hemodynamic stenosi s. The patient also had a nuclear stress test in which there was no evidence of any reversible defec t. There was no wall motion abnormality and the ejection fraction was estimated at 64%. He had an e chocardiogram in which the ejection fraction was 50% with no significant valvular disease or wall mot ion abnormality. Cholesterol total was 98, LDL was 57, HDL was 28. HOSPITAL COURSE: Mr. Beltrán is a pleasant 37-year-old gentleman who presented to the emergency room after he noticed numbness and tingling on the left side of his body as well as some weakness and he w as also complaining of some chest pain as well. He was placed in observation and monitored. He had a nuclear stress test which was negative. Carotid Doppler and echo were essentially normal and MRI d id not reveal any acute abnormality. His blood pressure was noted to be fairly labile, but more elev ated than not and as a result his carvedilol dose was increased to 6.25 and he will need to have cont inued monitoring of this on the outpatient basis. The patient was also instructed on a heart healthy diet as well as increasing his overall activity and was subsequently able to be discharged home with close outpatient followup.
== END 2017-11-22 14:19 | disposition home or self-care (01) ==
LOC: SCSER 11:58 → 2SW 16:12
PROVIDERS: ADMIT Internal Medicine; ATTEND Internal Medicine
DX: G45.9 Transient cerebral ischemic attack, unspecified (principal); R07.89 Other chest pain; I12.9 Hypertensive chronic kidney disease with stage 1 through stage 4 chronic kidney disease, or unspecified chronic kidney disease; E11.22 Type 2 diabetes mellitus with diabetic chronic kidney disease; N18.3 Chronic kidney disease, stage 3 (moderate); N17.9 Acute kidney failure, unspecified; D63.1 Anemia in chronic kidney disease; E11.51 Type 2 diabetes mellitus with diabetic peripheral angiopathy without gangrene; E87.5 Hyperkalemia; E87.2 Acidosis; F32.9 Major depressive disorder, single episode, unspecified; F41.9 Anxiety disorder, unspecified; E66.01 Morbid (severe) obesity due to excess calories; Z79.899 Other long term (current) drug therapy; Z89.511 Acquired absence of right leg below knee; Z82.49 Family history of ischemic heart disease and other diseases of the circulatory system; Z83.3 Family history of diabetes mellitus
CPT/HCPCS: 36415; 36416; 70450; 70551; 71045; 78452; 80048; 80053; 80061; 82553; 83690; 84484; 85025; 93005; 93017; 93306; 93880; A9500; G0378; G8978-GP-CI; G8979-GP-CI; G8980-GP-CI; G8987-GO-CI; G8988-GO-CI; G8989-GO-CI; J1644; J2785; Q0162

== ENCOUNTER 2017-12-01 21:41 | Emergency (ER) | payer SELFPAY ==
--- NOTE | 2017-12-01 22:35 | RAD ---
AP VIEW CHEST: Date: 12/01/17 INDICATION: Chest pain and facial numbness for 2 hours. IMPRESSION/IMPRESSION: No acute cardiopulmonary abnormality. The examination is unchanged from comparison dated 11/20/17. POS: ROSEMARIE
[2017-12-01 22:44] LABS: #Eosinphils 0.1 thou/uL (0.0-0.7); #Lymphocytes 1.6 thou/uL (1.20-3.40); #Monocytes 0.6 thou/uL (0.11-0.59); #Neutrophils 5.8 thou/uL (1.40-6.50); %Basophils 0.2 % (0.0-1.0); %Eosinophils 0.8 % (0.0-10.0); %Lymphocytes 20.4 % (21.0-51.0); %Monocytes 6.8 % (0.0-10.0); %Neutrophils 71.7 % (42.0-75.0); Hemoglobin 10.9 g/dL (14.0-18.0); Mean Corpuscular HGB CONC 32.4 g/dL (32.0-36.0); Mean Corpuscular Hemoglobin 28.2 pg (27.0-31.0); Mean Corpuscular Volume 87.1 fl (80.0-94.0); Mean Platelet Volume 6.7 fL (7.4-10.4); Platelet Count 296 thou/uL (130-400); RBC Distribution Width 13.7 % (11.5-14.5); Red Blood Cell (RBC) Count 3.85 mill/uL (4.70-6.10); White Blood Cell (WBC) Count 8.1 thou/uL (4.8-10.8)
[2017-12-01 23:06] LABS: ALT (SGPT) 12 U/L (8-55); AST (SGOT) 16 U/L (5-34); Albumin 3.2 g/dL (3.5-5.0); Alkaline Phosphatase 99 U/L (40-150); Anion Gap 11 mmol/L (10-20); BUN (Urea Nitrogen) 42 mg/dL (8.9-20.6); Bilirubin, Total 0.6 mg/dL (0.2-1.2); Calc. Creatinine Clearance 0 mL/min (70-130); Calcium 8.9 mg/dL (7.8-10.44); Carbon Dioxide 22 mmol/L (22-29); Chloride 112 mmol/L (98-107); Estimated GFR-MDRD 24; Globulin 4.3 g/dL (2.4-3.5); Glucose 101 mg/dL (70-105); Potassium 5.6 mmol/L (3.5-5.1); Protein, Total 7.5 g/dL (6.0-8.3); Sodium 139 mmol/L (136-145)
[2017-12-01 23:11] LABS: CKMB 3.6 ng/mL (0-6.6); Troponin I Less than 0.010 ng/mL (< 0.028)
[2017-12-02] MEDS ORDERED: Lorazepam 2 MG/ML VIAL ONE (00:24)
--- NOTE | 2017-12-07 16:17 | EKG ---
Test Reason : Blood Pressure : / mmHG Vent. Rate : 094 BPM Atrial Rate : 094 BPM P-R Int : 134 ms QRS Dur : 088 ms QT Int : 334 ms P-R-T Axes : 004 -17 002 degrees QTc Int : 417 ms Normal sinus rhythm Normal ECG Confirmed by RUTHIE BRISENO, JAYME ([id number]), digital editor DO MENDOZA ([id number]) on 12/07/2017 4:17:19 PM Referred By: Confirmed By:JAYME HENDRICKS MD
== END 2017-12-02 01:17 | disposition home or self-care (01) ==
LOC: ERS 21:41
DX: F43.0 Acute stress reaction (principal); E11.22 Type 2 diabetes mellitus with diabetic chronic kidney disease; N18.3 Chronic kidney disease, stage 3 (moderate); I12.9 Hypertensive chronic kidney disease with stage 1 through stage 4 chronic kidney disease, or unspecified chronic kidney disease; Z87.891 Personal history of nicotine dependence; Z79.899 Other long term (current) drug therapy; Z79.891 Long term (current) use of opiate analgesic
CPT/HCPCS: 36415; 71045; 80053; 82553; 84484; 85025; 93005; 96374; J2060

== ENCOUNTER 2018-09-07 22:03 | Emergency (ER) | payer BC, MEDICAID ==
[2018-09-07] MEDS ORDERED: Morphine 4 MG/ML VIAL ONE (23:05)
[2018-09-07] MEDS ORDERED: Morphine 2 MG/ML SYRINGE ONE (23:06)
[2018-09-07 23:09] LABS: #Basophils 0.1 thou/uL (0.0-0.2); #Eosinphils 0.3 thou/uL (0.0-0.7); #Monocytes 0.5 thou/uL (0.11-0.59); #Neutrophils 5.9 thou/uL (1.40-6.50); %Basophils 0.7 % (0.0-1.0); %Eosinophils 3.7 % (0.0-10.0); %Lymphocytes 12.8 % (21.0-51.0); %Monocytes 6.9 % (0.0-10.0); Hemoglobin 10.7 g/dL (14.0-18.0); Mean Corpuscular HGB CONC 31.7 g/dL (32.0-36.0); Mean Corpuscular Hemoglobin 28.8 pg (27.0-31.0); Mean Corpuscular Volume 90.9 fL (78.0-98.0); Mean Platelet Volume 7.1 fL (7.4-10.4); Platelet Count 332 thou/uL (130-400); RBC Distribution Width 13.5 % (11.5-14.5); Red Blood Cell (RBC) Count 3.71 mill/uL (4.70-6.10); White Blood Cell (WBC) Count 7.8 thou/uL (4.8-10.8)
[2018-09-07] MEDS ORDERED: Ondansetron PF 4 MG/2 ML Vial ONE (23:18)
[2018-09-07 23:33] LABS: ALT (SGPT) Less than 7 U/L (8-55); AST (SGOT) 11 U/L (5-34); Albumin 2.8 g/dL (3.5-5.0); Alkaline Phosphatase 93 U/L (40-150); Anion Gap 14 mmol/L (10-20); BUN (Urea Nitrogen) 20 mg/dL (8.9-20.6); Bilirubin, Total 0.8 mg/dL (0.2-1.2); Calc. Creatinine Clearance 0 mL/min (70-130); Calcium 8.7 mg/dL (7.8-10.44); Carbon Dioxide 18 mmol/L (22-29); Chloride 111 mmol/L (98-107); Estimated GFR-MDRD 24; Globulin 4.7 g/dL (2.4-3.5); Glucose 121 mg/dL (70-105); Potassium 4.6 mmol/L (3.5-5.1); Protein, Total 7.5 g/dL (6.0-8.3); Sodium 138 mmol/L (136-145)
[2018-09-08] MEDS ORDERED: Acetaminophen 500 MG TAB ONE (00:22)
== END 2018-09-08 01:06 | disposition home or self-care (01) ==
LOC: ERS 22:03
DX: S81.001A Unspecified open wound, right knee, initial encounter (principal); R11.2 Nausea with vomiting, unspecified; E11.9 Type 2 diabetes mellitus without complications; I12.9 Hypertensive chronic kidney disease with stage 1 through stage 4 chronic kidney disease, or unspecified chronic kidney disease; N18.3 Chronic kidney disease, stage 3 (moderate); F17.210 Nicotine dependence, cigarettes, uncomplicated; Z79.899 Other long term (current) drug therapy; X58.XXXA Exposure to other specified factors, initial encounter
CPT/HCPCS: 36415; 80053; 85025; 85652; 87040; 87070; 87077; 87186; 87205; 96361; 96374; 96375; J2270; J2405

== ENCOUNTER 2018-10-30 09:57 | Day surgery (SDC) | payer OTHER ==
[2018-10-29 12:42] VITALS: BMI 35.6
[~2018-10-30 09:57] MED LIST: EPINEPHrine 0.3 MG, Dextrose 50% 3 ML in Ophthalmic Irrigation Solution 500 ML FS SCH; Fentanyl 100 MCG/2 ML VIAL ONE; Midazolam HCl 2 mg/2 ml Vial ONE
[2018-10-30] MEDS ORDERED: Cyclopentolate 1% Opth Drop 2 ML BOT ONE (10:27)
[2018-10-30] MEDS ORDERED: Phenylephrine 2.5% Ophth Soln 5 ML BOT ONE (10:27)
[2018-10-30] MEDS ORDERED: hydrALAZINE 20 MG/ML VIAL ONE (12:03)
[2018-10-30] MEDS ORDERED: hydrALAZINE 20 MG/ML VIAL SLOW IVP SCH (12:15)
[2018-10-30] MEDS ORDERED: cloNIDine 0.1 MG TAB PO SCH (12:30)
[2018-10-30] MEDS ORDERED: Labetalol HCl 100 MG/20 ML VIAL ONE (12:47)
[2018-10-30] MEDS ORDERED: Lidocaine 1% PF 5 ML VIAL ONE (15:53)
[2018-10-30] MEDS ORDERED: Bupivacaine 0.75% 10 ML AMP ONE (15:53)
[2018-10-30] MEDS ORDERED: Lidocaine 4% PF 5 ML AMP ONE (15:53)
[2018-10-30] MEDS ORDERED: Maxitrol 0.1% Opth Oint 3.5 GM TUBE ONE (15:53)
[2018-10-30] MEDS ORDERED: Triamcinolone 40 MG/ML VIAL ONE (15:53)
[2018-10-30] MEDS ORDERED: PROPOFOL 200 MG/20 ML VIAL ONE (15:53)
[2018-10-30] MEDS ORDERED: CEFAZOLIN 1 GM VIAL ONE (15:53)
--- NOTE | 2018-10-31 09:28 | OP ---
DATE OF PROCEDURE: 10/30/2018 PREOPERATIVE DIAGNOSIS: Vitreous hemorrhage. POSTOPERATIVE DIAGNOSIS: Vitreous hemorrhage. PROCEDURE PERFORMED: Pars plana vitrectomy, membrane peel, right eye. ANESTHESIA: Local with monitored anesthesia care. PROCEDURE IN DETAIL: The patient was identified in preoperative holding area. Appropriate informed consent for the planned surgical procedure on the right eye had been obtained. The patient was transported to the operative suite, where appropriate cardiopulmonary monitoring was established. Local anesthesia was obtained using retrobulbar modified Van Lint lid block using 50:50 mixture of 4% lidocaine 0.75% bupivacaine. The patient was prepped and draped in usual sterile manner for ophthalmic surgery on the right eye. Lid speculum was placed in the right eye. A 25-gauge trocar was placed through the conjunctiva and sclera superotemporally, inferotemporally, and supranasally. Infusion line was placed inferotemporally. Light pipe and vitreous cutter were inserted to the eye. Core vitrectomy was performed. The retina appeared flat underneath the opacified vitreous. Panretinal photocoagulation was placed on all non-macular areas of the retina. Trocars were removed. The eye was noted to retain pressure well. Retrobulbar Kenalog and subconjunctival Ancef were placed. Antibiotic ointment was placed and the eye was patched and shielded. The patient was taken to the postoperative recovery unit in good condition, having suffered no immediate perioperative complications. The patient was instructed to keep patch and shield on, avoid lifting or bending. Followup appointment with Dr. Bowie. Job ID: [id number]
== END 2018-10-30 14:31 | disposition home or self-care (01) ==
LOC: SDC 09:57
PROVIDERS: ATTEND Ophthalmology Retina Specialist
PROC: 08B43ZZ Excision of Right Vitreous, Percutaneous Approach (ICD-10-PCS; principal; 2018-10-30)
PROC: 08QE3ZZ Repair Right Retina, Percutaneous Approach (ICD-10-PCS; principal; 2018-10-30)
DX: H43.11 Vitreous hemorrhage, right eye (principal); H33.41 Traction detachment of retina, right eye; Z79.82 Long term (current) use of aspirin; Z79.899 Other long term (current) drug therapy; Z88.8 Allergy status to other drugs, medicaments and biological substances
CPT/HCPCS: J0171; J0360; J0690; J2001; J2250; J2704; J3010; J3301; J3490

== ENCOUNTER → 2018-11-27 | Day surgery (SDC) | payer OTHER ==
[2018-11-26 14:45] VITALS: BMI 36.2
[~2018-11-27] MED LIST changes: +Acetaminophen 500 MG TAB ONE; +Bupivacaine 0.75% 10 ML AMP ONE; +CEFAZOLIN 1 GM VIAL ONE; +Cyclopentolate 1% Opth Drop 2 ML BOT ONE; -EPINEPHrine 0.3 MG, Dextrose 50% 3 ML in Ophthalmic Irrigation Solution 500 ML FS SCH; +EPINEPHrine 0.3 MG, Dextrose 50% 3 ML in Ophthalmic Irrigation Solution 500 ML IVP SCH; +Lidocaine 1% PF 5 ML VIAL ONE; +Lidocaine 4% PF 5 ML AMP ONE; +Maxitrol 0.1% Opth Oint 3.5 GM TUBE ONE; +PROPOFOL 20 ML ONE; +PROPOFOL 200 MG/20 ML VIAL ONE; +Phenylephrine 2.5% Ophth Soln 5 ML BOT ONE; +Triamcinolone 40 MG/ML VIAL ONE
--- NOTE | 2018-11-27 20:52 | OP ---
DATE OF PROCEDURE: 11/27/2018 PREOPERATIVE DIAGNOSES: Vitreous hemorrhage, traction retinal detachment, left eye. POSTOPERATIVE DIAGNOSES: Vitreous hemorrhage, traction retinal detachment, left eye. PROCEDURES PERFORMED: Pars plana vitrectomy and tractional retinal detachment repair of left eye. ANESTHESIA: Local with monitored anesthesia care. DESCRIPTION OF PROCEDURE: The patient was identified in the preoperative holding area. Appropriate informed consent for the planned surgical procedure on the left eye had been obtained. The patient was transported to the operative suite, where appropriate cardiopulmonary monitoring was established. Local anesthesia was obtained using retrobulbar modified Van Lint lid block using 50:50 mixture of 4% lidocaine and 0.75% bupivacaine. The patient was prepped and draped in the usual sterile manner for ophthalmic surgery, left eye. Lid speculum was placed in the left eye. A 25-gauge trocar was placed through the conjunctiva and sclera superotemporally, inferotemporally, and supranasally. Infusion line was placed inferotemporally. Light pipe and vitreous cutter were inserted into the eye. Core vitrectomy was performed. Careful dissection was made through the opacified vitreous until the posterior pole and retina was visualized. Retraction was noted from the nerve extending peripherally on the retina. Obstruction was relieved with end-gripping forceps. The retina was flattened. Panretinal photocoagulation was placed on all non-macular areas of the retina from the dense cataract. Trocars were removed, and the eye was noted to retain pressure well. Retrobulbar Kenalog and subconjunctival Ancef were placed. Antibiotic ointment was placed. The eye was patched and shielded. The patient was taken to the postoperative recovery unit in good condition, having suffered no immediate perioperative complications. The patient was instructed to keep patch and shield on and to avoid lifting and bending. Followup appointment with Dr. Bowie. Job ID: [id number]
== END ==
LOC: SDC 09:37
PROVIDERS: ATTEND Ophthalmology Retina Specialist
PROC: 08T53ZZ Resection of Left Vitreous, Percutaneous Approach (ICD-10-PCS; principal; 2018-11-27)
DX: H33.42 Traction detachment of retina, left eye (principal); H43.12 Vitreous hemorrhage, left eye
CPT/HCPCS: J0171; J0690; J2001; J2250; J2704; J3010; J3301; J3490

== ENCOUNTER 2021-12-11 23:56 | Observation (INO) | payer OTHER ==
[2021-12-12 01:47] VITALS: BMI 40.3
[2021-12-12] MEDS ORDERED: Dextrose 5% in Water 1,000 ML IV PRN (07:57)
[2021-12-12] MEDS ORDERED: Dextrose 50% Abboject 50 ML SYRINGE SLOW IVP PRN (07:57)
[2021-12-12] MEDS ORDERED: Acetaminophen 325 MG TAB PO PRN (07:57)
[2021-12-12] MEDS ORDERED: Calcium Carbonate 500 MG ChewTAB PO PRN (07:57)
[2021-12-12] MEDS ORDERED: HumaLOG 300 UNITS/3 ML VIAL SC PRN ×2 (07:57)
[2021-12-12] MEDS ORDERED: Famotidine 20 MG TAB PO PRN (07:58)
[2021-12-12] MEDS ORDERED: cloNIDine 0.2mg/24 Hour PATCH TD SCH (09:00)
[2021-12-12] MEDS ORDERED: Atenolol 50 MG TAB PO SCH (09:00)
[2021-12-12] MEDS: hydrALAZINE 20 MG/ML VIAL SLOW IVP PRN (09:08)
[2021-12-12] MEDS: hydrALAZINE 25 MG TAB PO SCH ×3 (09:09→22:18)
[2021-12-12] MEDS: Chlorthalidone 25 MG TAB PO SCH ×2 (11:22→22:00)
[2021-12-12] MEDS: Calcium Acetate 667 MG CAP PO SCH ×3 (11:22→17:58)
[2021-12-12] MEDS: Sodium Bicarbonate Tab 325 MG TAB PO SCH ×3 (11:22→22:00)
[2021-12-12] MEDS: Atenolol 50 MG TAB PO SCH ×2 (11:22→22:01)
[2021-12-12] MEDS: Calcium Carbonate 500 MG ChewTAB PO SCH (13:01)
[2021-12-12] MEDS: Heparin 5,000 UNITS/ML VIAL SC SCH ×3 (13:01→22:22)
[2021-12-12] MEDS: Amlodipine 10 MG TAB PO SCH (13:01)
[2021-12-12] MEDS ORDERED: CEFAZOLIN 2 GM in Sodium Chloride 0.9% 100 ML IVPB SCH ×2 (14:30→17:00)
[2021-12-12] MEDS ORDERED: Midazolam HCl 2 mg/2 ml Vial ONE (15:54)
[2021-12-12] MEDS ORDERED: fentaNYL Citrate/PF 100 MCG/2 ML SYRINGE ONE (15:54)
[2021-12-12] MEDS ORDERED: Bupivacaine PF 0.5% 30 ML VIAL ONE (16:05)
[2021-12-12] MEDS ORDERED: Lidocaine 1% w/Epinephrine 1:100K 20 ML VIAL ONE (16:05)
[2021-12-12] MEDS ORDERED: Heparin 10,000 UNITS/ 10 ML VIAL ONE (16:05)
[2021-12-12] MEDS ORDERED: traMADol HCl 50 MG TAB PO PRN (16:08)
[2021-12-12] MEDS ORDERED: Propofol 500 MG/50 ML VIAL ONE (16:12)
[2021-12-12] MEDS ORDERED: Lidocaine 1% PF 5 ML VIAL ONE (16:26)
[2021-12-12] MEDS ORDERED: PROPOFOL 200 MG/20 ML VIAL ONE (16:26)
[2021-12-12 20:09] LABS: HBSAB Concentration Less than 8.00 mIU/mL; HBSAg Index 0.26 S/CO (0-0.99); Hep B Surf AB Non-Reactive (NonReactive); Hep B Surf Ag Non-Reactive S/CO (NonReactive)
[2021-12-13] MEDS: hydrALAZINE 20 MG/ML VIAL SLOW IVP PRN (00:33)
[2021-12-13] MEDS ORDERED: traMADol HCl 50 MG TAB PO PRN (01:57)
[2021-12-13] MEDS ORDERED: traMADol HCl 50 MG TAB PO SCH (03:00)
[2021-12-13] MEDS: Dicyclomine 10 MG CAP PO SCH ×3 (04:39→16:37)
[2021-12-13 04:42] LABS: #Eosinphils 0.1 thou/uL (0.0-0.7); #Lymphocytes 1.2 thou/uL (1.20-3.40); #Monocytes 0.5 thou/uL (0.11-0.59); #Neutrophils 4.6 thou/uL (1.40-6.50); %Basophils 0.2 % (0.0-1.0); %Eosinophils 1.4 % (0.0-10.0); %Lymphocytes 18.7 % (21.0-51.0); %Monocytes 7.4 % (0.0-10.0); %Neutrophils 72.4 % (42.0-75.0); Hemoglobin 10.9 g/dL (14.0-18.0); Mean Corpuscular Hemoglobin 31.2 pg (27.0-31.0); Mean Corpuscular Volume 94.6 fL (78.0-98.0); Mean Platelet Volume 6.4 fL (7.4-10.4); Platelet Count 166 thou/uL (130-400); RBC Distribution Width 12.8 % (11.5-14.5); White Blood Cell (WBC) Count 6.4 thou/uL (4.8-10.8)
[2021-12-13 05:02] LABS: Anion Gap 14 mmol/L (10-20); BUN (Urea Nitrogen) 33 mg/dL (8.9-20.6); Calc. Creatinine Clearance 35 mL/min (70-130); Calcium 7.2 mg/dL (7.8-10.44); Carbon Dioxide 28 mmol/L (22-29); Chloride 101 mmol/L (98-107); Glucose 126 mg/dL (70-105); Potassium 4.3 mmol/L (3.5-5.1); Sodium 139 mmol/L (136-145)
[2021-12-13] MEDS: Atenolol 50 MG TAB PO SCH (06:17)
[2021-12-13 07:02] LABS: Hemoglobin A1c 5.4 % (4.0-6.0)
[2021-12-13] MEDS: Chlorthalidone 25 MG TAB PO SCH (07:41)
[2021-12-13] MEDS: Amlodipine 10 MG TAB PO SCH (07:41)
[2021-12-13] MEDS: hydrALAZINE 25 MG TAB PO SCH ×2 (07:41→16:07)
[2021-12-13] MEDS: Calcium Acetate 667 MG CAP PO SCH ×3 (07:41→16:37)
[2021-12-13] MEDS: Heparin 5,000 UNITS/ML VIAL SC SCH ×2 (07:41→16:07)
[2021-12-13] MEDS: Sodium Bicarbonate Tab 325 MG TAB PO SCH ×2 (07:41→16:07)
[2021-12-13] MEDS: Calcium Carbonate 500 MG ChewTAB PO SCH (07:41)
[2021-12-13] MEDS ORDERED: CEFAZOLIN 2 GM VIAL ONE (08:24)
[2021-12-13] MEDS ORDERED: Sodium Chloride 0.9% 100 ML ONE (08:24)
[2021-12-13] MEDS ORDERED: Heparin 10,000 UNITS/ 10 ML VIAL ONE (08:39)
[2021-12-13] MEDS ORDERED: Famotidine 20 MG TAB PO PRN (09:14)
[2021-12-13] MEDS ORDERED: fentaNYL Citrate/PF 100 MCG/2 ML SYRINGE ONE (10:01)
[2021-12-13] MEDS ORDERED: Heparin 5,000 UNITS/ML VIAL ONE (10:09)
[2021-12-13] MEDS ORDERED: Lidocaine 1% w/Epinephrine 1:100K 20 ML VIAL ONE (10:09)
[2021-12-13] MEDS ORDERED: Protamine Sulfate 50 MG/5 ML VIAL ONE (10:09)
[2021-12-13] MEDS ORDERED: Bupivacaine PF 0.5% 30 ML VIAL ONE (10:09)
[2021-12-13] MEDS ORDERED: Ondansetron HCl/PF 4 MG/2 ML Vial IVP PRN (11:19)
[2021-12-13] MEDS ORDERED: Promethazine HCl 25 MG/ML VIAL IVPB PRN (11:19)
[2021-12-13] MEDS ORDERED: Promethazine HCl 25 MG/ML VIAL IM PRN (11:19)
[2021-12-13] MEDS ORDERED: Fentanyl 100 MCG/2 ML VIAL ONE (12:26)
[2021-12-13] MEDS ORDERED: Ondansetron PF 4 MG/2 ML Vial ONE (12:27)
[2021-12-13 16:58] VITALS: BP 161/78; TEMP 97.5
== END 2021-12-13 18:55 | disposition home or self-care (01) ==
LOC: T4-A 12-12 00:28
PROVIDERS: ADMIT Internal Medicine; ATTEND Internal Medicine
PROC: 05HN33Z Insertion of Infusion Device into Left Internal Jugular Vein, Percutaneous Approach (ICD-10-PCS; principal; 2021-12-12)
PROC: 031B0ZF Bypass Right Radial Artery to Lower Arm Vein, Open Approach (ICD-10-PCS; 2021-12-13)
DX: I12.0 Hypertensive chronic kidney disease with stage 5 chronic kidney disease or end stage renal disease (principal); E11.22 Type 2 diabetes mellitus with diabetic chronic kidney disease; N18.6 End stage renal disease; D63.1 Anemia in chronic kidney disease; T82.590A Other mechanical complication of surgically created arteriovenous fistula, initial encounter; I82.611 Acute embolism and thrombosis of superficial veins of right upper extremity; E66.01 Morbid (severe) obesity due to excess calories; Z68.41 Body mass index [BMI] 40.0-44.9, adult; Z79.899 Other long term (current) drug therapy; Z88.2 Allergy status to sulfonamides; Z88.4 Allergy status to anesthetic agent; Z88.8 Allergy status to other drugs, medicaments and biological substances; Z89.511 Acquired absence of right leg below knee; Z99.2 Dependence on renal dialysis; Y81.3 Surgical instruments, materials and general- and plastic-surgery devices (including sutures) associated with adverse incidents
CPT/HCPCS: 71045; 80048; 83036; 85025; 86706; 87340; 93970; 96374; 96376; C1751; C1752; C1776; G0378; J0360; J1644; J2250; J2405; J2704; J2720; J3010; J3490; S0020